=== PATIENT | female | born 1960 ===

== ENCOUNTER 2018-04-13 11:07 | Emergency (ER) | payer MEDICAID, SELFPAY ==
[2018-04-13 11:39] VITALS: BP 140/68; PULSE 71; RESP 18; TEMP 36.6; O2SAT 96
[2018-04-13 11:44] LABS: Bilirubin Negative (Negative); Blood Trace-intact (Negative); Clarity Clear; Glucose Negative (Negative); Ketones Negative (Negative); Leukocyte Esterase Negative (Negative); Nitrite Negative (Negative); Urobilinogen 0.2 EU/dL (Up TO 0.2); pH 5.5 (5-8)
[2018-04-13 11:56] LABS: Bacteria Few HPF (Negative); C & S Indicated? No/Sq. Contamination; Casts Negative LPF (Negative); Crystals Negative HPF (Negative); Epithelial Cells Moderate HPF (Negative); Mucus Negative (Negative); RBC 0-2 (0-2); WBC 0-2 HPF (0-5)
[2018-04-13 12:21] LABS: Abs Immature Grans 0.02 k/cumm (0.0-0.09); Absolute Eosinophil Count 0.16 k/cumm (0.0-0.7); Absolute Lymphocyte Count 2.26 k/cumm (1.2-3.4); Absolute Neutrophil Count 8.79 k/cumm (1.2-6.7); Basophils % 0.2; Eosinophils % 1.3; HCT 43.6 % (36.0-46.0); HGB 15.5 g/dL (12.0-15.5); Immature Grans % 0.2; Lymphocytes % 18.5; Mean Corp. HGB Concentration 35.6 g/dL (32.0-36.0); Mean Corpuscular Hemoglobin 29.6 pg (27.0-33.0); Mean Corpuscular Volume 83.2 fL (80-95); Mean Platelet Volume 9.6 fL (8.0-11.0); Monocytes % 7.9; Neutrophils % 71.9; Platelet Count 255 x1000/uL (130-400); RBC 5.24 m/cumm (4.00-5.20); RBC Distribution Width 12.7 % (11.7-14.6); White Blood Cell Count 12.22 k/cumm (4.4-10.8)
[2018-04-13 12:31] LABS: Absolute Basophil Count 0.02 k/cumm (0.0-0.2); Absolute Monocyte Count 0.97 k/cumm (0.11-0.7)
[2018-04-13 12:37] LABS: ALT 38 U/L (12-78); AST 34 U/L (15-37); Alkaline Phosphatase 85 U/L (46-116); Anion Gap 11.5 mmol/L (3-11); BUN 35 mg/dL (7-18); Bilirubin, Total 0.5 mg/dL (0.2-1.0); CO2 29.5 mmol/L (21.0-32.0); CREATININE 1.34 mg/dL (0.55-1.02); Calcium 9.2 mg/dL (8.5-10.1); Chloride 92 mmol/L (98-107); Estimated GFR 40.48 (mL/min/1.73m2); Glucose 98 mg/dL (70-100); Lipase 92 U/L (73-393); Sodium 133 mmol/L (136-145)
[2018-04-13 12:42] LABS: Potassium 2.8 mmol/L (3.5-5.1)
[2018-04-13] MEDS: Potassium Chloride 20 MEQ TABCR 40 MEQ PO (13:08)
[2018-04-13] MEDS: Normal Saline 500 ML 1000 ML IV (13:15)
[2018-04-13] MEDS: POTASSIUM CHLORIDE 10 MEQ/100 ML BAG 100 MEQ IVPB (13:15)
--- NOTE | 2018-04-20 10:02 | ED.GENADUL_ITS ---
Discharge Plan Disposition Patient Disposition: HOME Condition: Improving Discharge Details Chief Complaint: Abd Prob Clinical Impression: Acute hypokalemia, Nausea vomiting and diarrhea Primary Care Provider: Kira Johnson ED Provider: Delroy Shin Home Meds and New Rx's Prescriptions: Continue amlodipine 5 MG tablet 5 mg PO DAILY RF: 0 chlorthalidone 50 MG tablet 50 mg PO DAILY RF: 0 pantoprazole 20 MG tablet,delayed release (DR/EC) 20 mg PO DAILY RF: 0 escitalopram oxalate [Lexapro] 10 MG tablet 20 mg PO DAILY RF: 0 dexmethylphenidate [Focalin XR] 10 MG capsule,ER biphasic 50-50 10 mg PO DAILY RF: 0 fluticasone-salmeterol [Advair HFA] 8 GM HFA aerosol inhaler 8 gm Inhalation DAILY RF: 0 buprenorphine-naloxone [Suboxone] 1 EACH film 1 ea Sublingual DAILY RF: 0 Loratadine 10 MG TAB.RAPDIS 10 mg PO DAILY RF: 0 levothyroxine 25 MCG tablet 25 mcg PO DAILY RF: 0 potassium chloride 20 MEQ tablet,ER particles/crystals 20 meq PO BID RF: 0 lisinopril 20 MG tablet 20 mg PO DAILY RF: 0 Discharge Instructions Instructions: Hypokalemia (ED), Acute Nausea and Vomiting (ED) Additional Instructions: Take your oral potassium as prescribed and follow-up with your primary care provider if you are continuing to not improved. Feel free to return to the emergency department for any new or worsening symptoms Referrals: Kira Johnson MD [Primary Care Provider] - (As needed for reassessment) Discharge Data Discharge Date/Time-TO BE ENTERED AT DEPARTURE: 04/13/18 15:29 Medical Decision Making Patient presenting to the emergency department for 2 days of nausea and vomiting that she states is persistent with multiple episodes of vomiting and inability to keep down any fluids or food. Patient states some generalized weakness and overall not feeling well but denies any significant abdominal pain , diarrhea, fever or chills. Patient does state that other family member had similar illness that lasted approximately 24 hours about a week ago otherwise has no other known sick contacts and no recent travel. Patient also denies any ingestion of possible spoiled or contaminated food. Patient does state history of low potassium and that she has not been able to tolerate any of her medications. Physical exam is unremarkable and patient has benign nonsurgical abdominal exam but given patient's complaint of weakness and profuse vomiting without ability to take her medications I do feel that labs and IV hydration is needed. Patient denies any current nausea or vomiting states mostly concerned for possible dehydration Review of labs shows significant hypokalemia, leukocytosis, otherwise nondiagnostic labs. Patient was ordered an additional 1 L of fluids and IV potassium. After completion of potassium patient patient reassessed and states significant improvement. Patient was given p.o. potassium and some water and crackers for p.o. challenge. Patient had no adverse effects and was able to tolerate p.o. intake prior to discharge. Patient will encouraged to stay well- hydrated and continue to take her oral potassium along with other prescribed medications. Return to the emergency department for any new or worsening symptoms otherwise to follow-up with her primary care provider for reassessment as needed. Lab Data Lab results reviewed: Yes I reviewed the patient's lab results. HPI General Mode of arrival: ambulatory . Date/Time Provider Initiated Documentation: 04/13/18 11:28 . Limitations to Documentation: no limitations . Information obtained by: patient and RN notes reviewed . History of Present Illness 58 year old F presents to the emergency department with the chief complaint of Nausea vomiting, with intensity rated at 1. Quality is described as aching, and is localized to the abdomen. Patient reports no radiation. Patient started experiencing this day(s) (1) and it has been constant. No relieving factors improve symptom(s), No exacerbating factors reported . Patient notes no other symptoms.. Patient did receive the following treatments prior to arrival, none Related Data Home Medications Medication Instructions Recorded Confirmed levothyroxine 25 mcg PO DAILY 10/14/16 11/16/17 potassium chloride 20 meq PO BID 10/14/16 11/16/17 lisinopril 20 mg PO DAILY 11/16/17 11/16/17 Loratadine 10 mg PO DAILY tab-cap 01/16/18 amlodipine 5 mg PO DAILY tab-cap 01/16/18 buprenorphine-naloxone [Suboxone] 1 ea SUBLINGUAL DAILY film 01/16/18 chlorthalidone 50 mg PO DAILY tab-cap 01/16/18 dexmethylphenidate [Focalin XR] 10 mg PO DAILY tab-cap 01/16/18 escitalopram oxalate [Lexapro] 20 mg PO DAILY tab-cap 01/16/18 fluticasone-salmeterol [Advair HFA] 8 gm INHALATION DAILY inhaler 01/16/18 pantoprazole 20 mg PO DAILY tab-cap 01/16/18 Allergies Allergy/AdvReac Type Severity Reaction Status Date / Time No Known Allergies Allergy Unverified 11/16/17 10:00 General Stated Complaint: Abd Prob KAY: 3 Review of Systems Constitutional Denies chills, Reports fatigue, Denies fever(s) and Reports poor appetite Cardiovascular Denies chest pain and Denies dyspnea Respiratory Denies dyspnea Gastrointestinal Reports as per HPI, Reports abdominal pain, Denies melena, Denies change in bowel habits, Denies constipation, Denies diarrhea, Reports nausea and Reports vomiting Genitourinary Denies hematuria, Denies urinary incontinence, Denies urinary hesitancy and Denies urinary urgency Integumentary/Breasts Denies rash Endocrine Reports fatigue PFSH Medical History Depression (Chronic) GERD (gastroesophageal reflux disease) (Chronic) Hypertension (Chronic) Hypokalemia due to inadequate potassium intake (Chronic) Social History Smoking/Tobacco Use Status: Never Surgical History History of hysterectomy (Chronic) Exam Const General: cooperative Orientation: alert, awake and oriented x3 Resp Effort & Inspection: normal respiratory effort and able to speak in complete sentences Auscultation: clear to auscultation bilaterally Cardio Rate: regular rate Rhythm: regular rhythm Heart Sounds: S1 normal and S2 normal GI Palpation: soft, no hepatosplenomegaly, not firm, no guarding, no masses, no pulsatile masses, not rigid, no splenomegaly and nontender Auscultation: normal bowel sounds Back/Spine/Pelvis Back: no CVA tenderness Neuro General: alert, awake, oriented x3, gait normal and moves all extremities Course Vital Signs Temperature 36.6 C 04/13/18 11:39 Pulse 71 04/13/18 11:39 Respiratory Rate 18 04/13/18 11:39 Blood Pressure 140/68 04/13/18 11:39 Pulse Oximetry 96 04/13/18 11:39 Temperature 36.6 C 04/13/18 11:39 Temperature Source Temporal Artery Scan 04/13/18 11:39 Pulse 71 04/13/18 11:39 Respiratory Rate 18 04/13/18 11:39 Respiratory Effort 04/13/18 11:42 Blood Pressure 140/68 04/13/18 11:39 Blood Pressure Position Sitting 04/13/18 11:39 Pulse Oximetry 96 04/13/18 11:39 Oxygen Delivery Method Room Air 04/13/18 11:39 Oxygen Flow Rate 0 04/13/18 11:39 Pain Level 0 04/13/18 11:39 Lab/Test Results Lab/Test Results: Laboratory Tests Range/Units 04/13/18 04/13/18 04/13/18 11:30 12:11 12:11 WBC (4.4-10.8) k/cumm 12.22 H RBC (4.00-5.20) m/cumm 5.24 H Hgb (12.0-15.5) g/dL 15.5 Hct (36.0-46.0) % 43.6 MCV (80-95) fL 83.2 MCH (27.0-33.0) pg 29.6 MCHC (32.0-36.0) g/dL 35.6 RDW (11.7-14.6) % 12.7 Plt Count (130-400) x1000/uL 255 MPV (8.0-11.0) fL 9.6 Immature Gran % 0.2 Neutrophils % 71.9 Lymphocytes % 18.5 Monocytes % 7.9 Eosinophils % 1.3 Basophils % 0.2 Absolute Neutrophils (1.2-6.7) k/cumm 8.79 H Absolute Lymphocytes (1.2-3.4) k/cumm 2.26 Absolute Monocytes (0.11-0.7) k/cumm 0.97 H Absolute Eosinophils (0.0-0.7) k/cumm 0.16 Absolute Basophils (0.0-0.2) k/cumm 0.02 Sodium (136-145) mmol/L 133 L Potassium (3.5-5.1) mmol/L 2.8 L* Chloride (98-107) mmol/L 92 L Carbon Dioxide (21.0-32.0) mmol/L 29.5 Anion Gap (3-11) mmol/L 11.5 H BUN (7-18) mg/dL 35 H Creatinine (0.55-1.02) mg/dL 1.34 H Estimated GFR/1.73 m2 (mL/min/1.73m2) 40.48 Glucose (70-100) mg/dL 98 Calcium (8.5-10.1) mg/dL 9.2 Total Bilirubin (0.2-1.0) mg/dL 0.5 AST (15-37) U/L 34 ALT (12-78) U/L 38 Alkaline Phosphatase (46-116) U/L 85 Total Protein (6.4-8.2) g/dL 8.0 Albumin (3.4-5.0) g/dL 4.0 Lipase (73-393) U/L 92 Urine Color (Yellow) Yellow Urine Clarity Clear Urine pH (5-8) 5.5 Ur Specific [place] (1.005-1.025) 1.010 Urine Protein (Negative) mg/dL Negative Urine Ketones (Negative) mg/dL Negative Urine Blood (Negative) Trace-intact H Urine Nitrite (Negative) Negative Urine Bilirubin (Negative) Negative Urine Urobilinogen (Up TO 0.2) EU/dL 0.2 Ur Leukocyte Esterase (Negative) Negative Urine RBC (0-2) 0-2 Urine WBC (0-5) HPF 0-2 Ur Epithelial Cells (Negative) HPF Moderate Urine Crystals (Negative) HPF Negative Urine Bacteria (Negative) HPF Few Urine Casts (Negative) LPF Negative Urine Mucus (Negative) Negative Ur Culture Indicated? No/sq. contamination Urine Glucose (Negative) mg/dL Negative
== END 2018-04-13 15:29 | disposition home or self-care (01) ==
PROVIDERS: Emergency Provider Nurse Practitioner Family; PCP Family Medicine
DX: E87.6 Hypokalemia (principal); R11.2 Nausea with vomiting, unspecified; R19.7 Diarrhea, unspecified; I10 Essential (primary) hypertension
CPT/HCPCS: 36415; 80053; 83690; 96361; 96365; 99284; 81003; 81015; 85025; J3480

== ENCOUNTER 2018-07-16 15:32 | Outpatient (CLI) | payer MEDICAID, SELFPAY ==
[2018-07-16 16:56] LABS: Absolute Basophil Count 0.06 k/cumm (0.0-0.2); Absolute Eosinophil Count 0.51 k/cumm (0.0-0.7); Absolute Lymphocyte Count 2.49 k/cumm (1.2-3.4); Absolute Monocyte Count 0.29 k/cumm (0.11-0.7); Absolute Neutrophil Count 3.72 k/cumm (1.2-6.7); Basophils % 0.8; Eosinophils % 7.2; HCT 43.3 % (36.0-46.0); HGB 15.2 g/dL (12.0-15.5); Lymphocytes % 35.2; Mean Corp. HGB Concentration 35.1 g/dL (32.0-36.0); Mean Corpuscular Volume 85.4 fL (80-95); Mean Platelet Volume 10.2 fL (8.0-11.0); Monocytes % 4.1; Neutrophils % 52.7; Platelet Count 229 x1000/uL (130-400); RBC 5.07 m/cumm (4.00-5.20); RBC Distribution Width 12.6 % (11.7-14.6); White Blood Cell Count 7.07 k/cumm (4.4-10.8)
[2018-07-16 17:40] LABS: ALT 37 U/L (12-78); Anion Gap 8.4 mmol/L (3-11); BUN 15 mg/dL (7-18); CO2 30.6 mmol/L (21.0-32.0); CREATININE 0.83 mg/dL (0.55-1.02); Calcium 9.4 mg/dL (8.5-10.1); Chloride 103 mmol/L (98-107); Glucose 87 mg/dL (70-100); Potassium 4.2 mmol/L (3.5-5.1); Sodium 142 mmol/L (136-145)
[2018-07-16 22:33] LABS: Hemoglobin A1C 5.8 % (4.5-6.2)
== END 2018-07-16 15:52 ==
PROVIDERS: PCP Family Medicine; Visit Provider Family Medicine
DX: E78.5 Hyperlipidemia, unspecified (principal); R73.01 Impaired fasting glucose; E87.6 Hypokalemia; D72.829 Elevated white blood cell count, unspecified
CPT/HCPCS: 36415; 80048; 83036; 84460; 85025

== ENCOUNTER 2018-12-19 10:04 | Outpatient (REF) | payer MEDICAID, SELFPAY ==
[2018-12-19 13:17] LABS: ALT 36 U/L (12-78); AST 20 U/L (15-37); Albumin 4.3 g/dL (3.4-5.0); Alkaline Phosphatase 88 U/L (46-116); Bilirubin, Total 0.3 mg/dL (0.2-1.0); CREATININE 0.74 mg/dL (0.55-1.02); Calcium 9.4 mg/dL (8.5-10.1); Calculated LDL 109; Chloride 102 mmol/L (98-107); Cholesterol 169 mg/dL (50-200); Glucose 104 mg/dL (70-100); HDL Cholesterol 42 mg/dL (40-60); Potassium 4.6 mmol/L (3.5-5.1); Sodium 141 mmol/L (136-145); TSH (W/Ref FT4) 1.06 uIU/mL (0.358-3.74); Total Protein 7.8 g/dL (6.4-8.2); Triglyceride 92 mg/dL (30-150)
[2018-12-19 13:31] LABS: BUN 14 mg/dL (7-18)
[2018-12-19 14:42] LABS: Hemoglobin A1C 5.8 % (4.5-6.2)
== END 2018-12-19 10:24 ==
LOC: NCHCN 10:04
PROVIDERS: PCP Family Medicine; Visit Provider Family Medicine
DX: I10 Essential (primary) hypertension (principal); E03.9 Hypothyroidism, unspecified; R73.01 Impaired fasting glucose; E78.5 Hyperlipidemia, unspecified
CPT/HCPCS: 80053; 80061; 83721; 83036; 84443

== ENCOUNTER 2018-12-25 21:37 | Emergency (ER) | payer MEDICAID, SELFPAY ==
[2018-12-25] VITALS (15 sets, daily range): BP systolic 59–93; BP diastolic 29–45; PULSE 69–88; RESP 11–36; TEMP 36.2; O2SAT 82–96
--- NOTE | 2018-12-25 21:48 | ED.GENADUL_ITS ---
Discharge Plan Disposition Patient Disposition: AGAINST MEDICAL ADVICE Condition: Serious Discharge Details Chief Complaint: Dizzy/Sync Clinical Impression: Acute hypotension, Syncope, Acute hypokalemia Primary Care Provider: Kira Johnson ED Provider: Mayra Ames Home Meds and New Rx's Prescriptions: Continued amlodipine 5 MG tablet 5 mg PO DAILY RF: 0 pantoprazole 20 MG tablet,delayed release (DR/EC) 40 mg PO DAILY RF: 0 escitalopram oxalate [Lexapro] 10 MG tablet 20 mg PO DAILY RF: 0 dexmethylphenidate [Focalin XR] 10 MG capsule,ER biphasic 50-50 30 mg PO DAILY RF: 0 Advair HFA 8 GM HFA aerosol inhaler 8 gm Inhalation DAILY RF: 0 buprenorphine-naloxone [Suboxone] 1 EACH film 1 ea Sublingual DAILY RF: 0 levothyroxine 25 MCG tablet 50 mcg PO DAILY RF: 0 potassium chloride 20 MEQ tablet,ER particles/crystals 20 meq PO BID RF: 0 lisinopril 20 MG tablet 40 mg PO DAILY RF: 0 Discontinued rosuvastatin 20 mg Tablet 20 mg PO DAILY RF: 0 Discharge Instructions Instructions: Hypokalemia (ED), Syncope (ED), Hypotension (ED) Additional Instructions: You are acutely ill and leaving AGAINST MEDICAL ADVICE. The medical issues found here place you at a high risk for serious medical risk including . You may return at any point for further medical care. Please call 911 with any recurrent symptoms. Please contact your primary care tomorrow morning for follow up as soon as possible Referrals: Kira Johnson MD [Primary Care Provider] - Discharge Data Discharge Date/Time-TO BE ENTERED AT DEPARTURE: 12/26/18 00:09 <Amadou Lagos MD - Last Filed: 12/25/18 21:49> ECG Data Attestation: I personally reviewed and interpreted this ECG (s) as follows: Prior ECG tracings: not available for review Interpretation: sinus rhythm, rate of 75, pr 180, no acute st t wave ischemic changes HPI <ANUSHA Garcia - Last Filed: 12/26/18 23:29> General Date/Time Provider Initiated Documentation: 12/25/18 21:44 . Related Data Home Medications Medication Instructions Recorded Confirmed levothyroxine 50 mcg PO DAILY 10/14/16 12/25/18 potassium chloride 20 meq PO BID 10/14/16 12/25/18 lisinopril 40 mg PO DAILY 11/16/17 12/25/18 Advair HFA 8 gm INHALATION DAILY inhaler 01/16/18 12/25/18 amlodipine 5 mg PO DAILY tab-cap 01/16/18 12/25/18 buprenorphine-naloxone [Suboxone] 1 ea SUBLINGUAL DAILY film 01/16/18 12/25/18 dexmethylphenidate [Focalin XR] 30 mg PO DAILY tab-cap 01/16/18 12/25/18 escitalopram oxalate [Lexapro] 20 mg PO DAILY tab-cap 01/16/18 12/25/18 pantoprazole 40 mg PO DAILY tab-cap 01/16/18 12/25/18 Allergies Allergy/AdvReac Type Severity Reaction Status Date / Time No Known Allergies Allergy Unverified 05/16/18 14:28 General Stated Complaint: Dizzy/Sync KAY: 2 PFSH <ANUSHA Garcia - Last Filed: 12/26/18 23:29> Medical History Hepatitis C antibody test positive (Acute) Hx of opioid abuse (Acute) Depression (Chronic) GERD (gastroesophageal reflux disease) (Chronic) Hypertension (Chronic) Hypokalemia due to inadequate potassium intake (Resolved) Surgical History History of hysterectomy (Resolved) Social History Smoking/Tobacco Use Status: Current every day Tobacco Type: cigarettes Alcohol Intake: never Drug use: Current Sobriety Substance use type: does not use Details: 7 years on daily suboxone Number of Children: 4 current occupation: works at [employer]. [place] daily Seatbelt use: always Do you feel safe at home: Yes Do you feel safe in your relationship?: Yes History History 4 Para Hx # Term Pregnancies 4 Multiple births Hx # Pregnancies Ectopic pregnancies AB induced Hx Number of Living Children AB spontaneous Course <ANUSHA Garcia - Last Filed: 12/26/18 23:29> Vital Signs Temperature 36.2 C L 12/25/18 21:43 Pulse 78 12/25/18 21:43 Respiratory Rate 18 12/25/18 21:43 Blood Pressure 70/35 L 12/25/18 21:43 Pulse Oximetry 91 L 12/25/18 21:43 Temperature 36.2 C L 12/25/18 21:43 Temperature Source Tympanic 12/25/18 21:43 Pulse 78 12/25/18 21:43 Respiratory Rate 18 12/25/18 21:43 Blood Pressure 70/35 L 12/25/18 21:43 Blood Pressure Position Supine 12/25/18 21:43 Pulse Oximetry 91 L 12/25/18 21:43 Oxygen Delivery Method Room Air 12/25/18 21:43 Oxygen Flow Rate 0 12/25/18 21:43
[2018-12-25] MEDS: Normal Saline 1,000 ML 1000 ML IV ×2 (21:51→23:41)
--- NOTE | 2018-12-25 21:58 | W.ED.GENAD ---
Discharge Plan Disposition Patient Disposition: AGAINST MEDICAL ADVICE Condition: Serious Discharge Details Chief Complaint: Dizzy/Sync Clinical Impression: Acute hypotension, Syncope, Acute hypokalemia Primary Care Provider: Kira Johnson ED Provider: Mayra Ames Home Meds and New Rx's Prescriptions: Continued amlodipine 5 MG tablet 5 mg PO DAILY RF: 0 pantoprazole 20 MG tablet,delayed release (DR/EC) 40 mg PO DAILY RF: 0 escitalopram oxalate [Lexapro] 10 MG tablet 20 mg PO DAILY RF: 0 dexmethylphenidate [Focalin XR] 10 MG capsule,ER biphasic 50-50 30 mg PO DAILY RF: 0 Advair HFA 8 GM HFA aerosol inhaler 8 gm Inhalation DAILY RF: 0 buprenorphine-naloxone [Suboxone] 1 EACH film 1 ea Sublingual DAILY RF: 0 levothyroxine 25 MCG tablet 50 mcg PO DAILY RF: 0 potassium chloride 20 MEQ tablet,ER particles/crystals 20 meq PO BID RF: 0 lisinopril 20 MG tablet 40 mg PO DAILY RF: 0 Discontinued rosuvastatin 20 mg Tablet 20 mg PO DAILY RF: 0 Discharge Instructions Instructions: Hypokalemia (ED), Syncope (ED), Hypotension (ED) Additional Instructions: You are acutely ill and leaving AGAINST MEDICAL ADVICE. The medical issues found here place you at a high risk for serious medical risk including . You may return at any point for further medical care. Please call 911 with any recurrent symptoms. Please contact your primary care tomorrow morning for follow up as soon as possible Referrals: Kira Johnson MD [Primary Care Provider] - Medical Decision Making Patient is a 58-year-old female presents today with chief complaint of syncope x2 prior to arrival. States that symptoms that suddenly came on. Patient associates this with need to have bowel movement. On exam, patient appears quite well. She is noted to be hypotensive with blood pressure of 70/45. She is mentating well, alert and oriented. She has petechia on bilateral feet. Unable to palpate pulses in the feet. No abdominal tenderness on exam. Exam otherwise benign. Patient does have a murmur but reports this is chronic. Patient is currently asymptomatic. EKG was reviewed by Dr. Lagos. Patient is in normal sinus rhythm with a rate of 75. No ischemic changes noted. Concern for possible dissection. Plan to send her for a CAT scan immediately. Patient is having a bowel movement, patient unable to wait until after imaging and evaluation. CT of chest/abdomen/pelvis reviewed by myself, Dr. Lagos. Reviewed by radiologist, no acute pathology noted. Of note, no dissection, PE, aneurysm, pericardial effusion, heart strain Potassium 2.5, patient has hx of hypokalemia. will begin to replenish this. Discussed case with Dr. Lagos who advised this may be secondary to adrenal crisis, advised ordering IV hydrocortisone, 100mg given. No beds are available in our institution Consulted with Dr. Arora at [facility] who advised starting patient on norepinephrine as her BP remains low with systolic in 70s despite aggressive IV hydration. He agrees to admission. Images pushed to them. Shortly after admission was accepted, patient is now wanting to leave. Patient does have capacity but we discussed the risks at length. Will attempt to road test the patient and she feels that she can walk out. Her systolic is now improved at 107. This is after hydrocortisone, 3 L of fluid, oral potassium and is currently receiving her IV potassium. I advised her, in detail, that her feeling well may be associated with the medication she is currently receiving and that there is risk of morbidity and mortality should she decide to leave AGAINST MEDICAL ADVICE tonight. Patient voiced understanding, has appropriate capacity to make this decision. She is accompanied by her significant other is also trying to get her to stay for further medical care. Patient able to ambulate to the bathroom. Again, patient does have mental capacity and is refusing further medical care, is wanting to leave AGAINST MEDICAL ADVICE. She has been explained possible outcomes with this decision. She has armored truck driver here taking her home. HPI General Mode of arrival: EMS. Date/Time Provider Initiated Documentation: 12/25/18 21:44. Limitations to Documentation: no limitations. Information obtained by: patient, family, EMS and RN notes reviewed. HPI Narrative: Patient is a 58-year-old female presents today with chief complaint of syncope. She reports that she been feeling quite well this afternoon. Reports that she had sudden urge to use the bathroom, stood up from a seated position and had a syncopal episode. Her then called 911. Firefighters were able to help her get back to more seated position and patient again syncopized. When EMS arrived, patient was laying on the couch. Was noted to be hypotensive with systolic in the 70. Patient reports that she is feeling quite well this time. However, she does more upright position, she again becomes lightheaded. She denies any chest pain, abdominal pain, shortness of breath. Continues to endorse need to have a bowel movement. Reports that she did have a hard bowel movement yesterday and is concerned for constipation. Hx of hep C, GERD, HTN, hypokalemia, depression. Patient took Rosuvastatin for the first time this evening, medications otherwise unchagned. Related Data Home Medications Medication Instructions Recorded Confirmed levothyroxine 50 mcg PO DAILY 10/14/16 12/25/18 potassium chloride 20 meq PO BID 10/14/16 12/25/18 lisinopril 40 mg PO DAILY 11/16/17 12/25/18 Advair HFA 8 gm INHALATION DAILY inhaler 01/16/18 12/25/18 amlodipine 5 mg PO DAILY tab-cap 01/16/18 12/25/18 buprenorphine-naloxone [Suboxone] 1 ea SUBLINGUAL DAILY film 01/16/18 12/25/18 dexmethylphenidate [Focalin XR] 30 mg PO DAILY tab-cap 01/16/18 12/25/18 escitalopram oxalate [Lexapro] 20 mg PO DAILY tab-cap 01/16/18 12/25/18 pantoprazole 40 mg PO DAILY tab-cap 01/16/18 12/25/18 Allergies Allergy/AdvReac Type Severity Reaction Status Date / Time No Known Allergies Allergy Unverified 05/16/18 14:28 General Stated Complaint: Dizzy/Sync KAY: 2 Review of Systems Constitutional Reports as per HPI, Denies chills, Denies fever(s), Denies headache(s), Denies lethargy and Denies poor appetite Eyes Denies change in vision ENT Denies dizziness and Denies headache(s) Cardiovascular Reports as per HPI, Reports syncope (x2), Denies dyspnea and Denies dyspnea on exertion Respiratory Reports as per HPI, Denies chest congestion, Denies cough, Denies pain on inspiration, Denies pain with cough, Denies dyspnea, Denies dyspnea on exertion and Denies wheezing Gastrointestinal Reports as per HPI, Denies abdominal pain, Denies diarrhea, Denies nausea and Denies vomiting Musculoskeletal Reports as per HPI and Denies back pain Integumentary/Breasts Reports as per HPI and Denies rash Neurologic Reports as per HPI, Denies dizziness, Reports syncope (x2) and Denies headache(s) Allergic/Immunologic Denies wheezing [facility] Medical History Hepatitis C antibody test positive (Acute) Hx of opioid abuse (Acute) Depression (Chronic) GERD (gastroesophageal reflux disease) (Chronic) Hypertension (Chronic) Hypokalemia due to inadequate potassium intake (Resolved) Surgical History History of hysterectomy (Resolved) Social History Smoking/Tobacco Use Status: Current every day Tobacco Type: cigarettes Alcohol Intake: never Drug use: Current Sobriety Substance use type: does not use Details: 7 years on daily suboxone Number of Children: 4 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 Seatbelt use: always Do you feel safe at home: Yes Do you feel safe in your relationship?: Yes History History 4 Para Hx # Term Pregnancies 4 Multiple births Hx # Pregnancies Ectopic pregnancies AB induced Hx Number of Living Children AB spontaneous Exam Const General: cooperative, healthy appearing, comfortable, no acute distress and well developed Nutritional Appearance: average body habitus and well nourished Orientation: alert, awake and oriented x3 HENMT Head: normal to inspection Ears: hearing grossly normal bilaterally Mouth: moist mucous membranes Chest Chest: normal inspection of the chest, normal palpation of entire chest wall and no crepitus Resp Effort & Inspection: normal respiratory effort, able to speak in complete sentences and no respiratory distress Auscultation: clear to auscultation bilaterally, no rales, no rhonchi and no wheezes Cardio Rate: regular rate Rhythm: regular rhythm Heart Sounds: murmur systolic GI Inspection: normal to inspection, no edema and non-distended Palpation: soft, no hepatosplenomegaly, no aortic enlargement, not firm, no guarding, not rigid and nontender Auscultation: hypoactive bowel sounds Back/Spine/Pelvis Back: no CVA tenderness Thoracic/Lumbar Spine: thoracic and lumbar spine normal to inspection Skin General skin exam: no rashes or lesions noted Trauma: no lacerations or abrasions Neuro General: alert, awake and oriented x3 Cognition: normal cognition Speech: speech normal Gait: normal gait Extrem General: abnormal to inspection (patient has petechiae to the dorsal aspect of bilateral feet. Unable to pa), no pedal edema and no calf tenderness Psych Appearance: grossly normal and well kempt Mental Status: mental status grossly normal Speech and Movement: speech and movement normal Course Vital Signs Temperature 36.2 C L 12/25/18 21:43 Pulse 78 12/25/18 21:43 Respiratory Rate 18 12/25/18 21:43 Blood Pressure 70/35 L 12/25/18 21:43 Pulse Oximetry 91 L 12/25/18 21:43 Temperature 36.2 C L 12/25/18 21:43 Temperature Source Tympanic 12/25/18 21:43 Pulse 78 12/25/18 21:43 Respiratory Rate 18 12/25/18 21:53 Respiratory Effort 12/25/18 21:53 Respiratory Depth Normal 12/25/18 21:53 Respiratory Pattern Normal 12/25/18 21:53 Blood Pressure 70/35 L 12/25/18 21:43 Blood Pressure Position Supine 12/25/18 21:43 Pulse Oximetry 91 L 12/25/18 21:43 Oxygen Delivery Method Room Air 12/25/18 21:43 Oxygen Flow Rate 0 12/25/18 21:43
--- NOTE | 2018-12-25 22:01 | ED.GENADUL_ITS ---
Discharge Plan Disposition Patient Disposition: AGAINST MEDICAL ADVICE Condition: Serious Discharge Details Chief Complaint: Dizzy/Sync Clinical Impression: Acute hypotension, Syncope, Acute hypokalemia Primary Care Provider: Kira Johnson ED Provider: Mayra Ames Home Meds and New Rx's Prescriptions: Continued amlodipine 5 MG tablet 5 mg PO DAILY RF: 0 pantoprazole 20 MG tablet,delayed release (DR/EC) 40 mg PO DAILY RF: 0 escitalopram oxalate [Lexapro] 10 MG tablet 20 mg PO DAILY RF: 0 dexmethylphenidate [Focalin XR] 10 MG capsule,ER biphasic 50-50 30 mg PO DAILY RF: 0 Advair HFA 8 GM HFA aerosol inhaler 8 gm Inhalation DAILY RF: 0 buprenorphine-naloxone [Suboxone] 1 EACH film 1 ea Sublingual DAILY RF: 0 levothyroxine 25 MCG tablet 50 mcg PO DAILY RF: 0 potassium chloride 20 MEQ tablet,ER particles/crystals 20 meq PO BID RF: 0 lisinopril 20 MG tablet 40 mg PO DAILY RF: 0 Discontinued rosuvastatin 20 mg Tablet 20 mg PO DAILY RF: 0 Discharge Instructions Instructions: Hypokalemia (ED), Syncope (ED), Hypotension (ED) Additional Instructions: You are acutely ill and leaving AGAINST MEDICAL ADVICE. The medical issues found here place you at a high risk for serious medical risk including . You may return at any point for further medical care. Please call 911 with any recurrent symptoms. Please contact your primary care tomorrow morning for follow up as soon as possible Referrals: Kira Johnson MD [Primary Care Provider] - Medical Decision Making Patient is a 58-year-old female presents today with chief complaint of syncope x2 prior to arrival. States that symptoms that suddenly came on. Patient associates this with need to have bowel movement. On exam, patient appears quite well. She is noted to be hypotensive with blood pressure of 70/45. She is mentating well, alert and oriented. She has petechia on bilateral feet. Unable to palpate pulses in the feet. No abdominal tenderness on exam. Exam otherwise benign. Patient does have a murmur but reports this is chronic. Patient is currently asymptomatic. EKG was reviewed by Dr. Lagos. Patient is in normal sinus rhythm with a rate of 75. No ischemic changes noted. Concern for possible dissection. Plan to send her for a CAT scan immediately. Patient is having a bowel movement, patient unable to wait until after imaging and evaluation. CT of chest/abdomen/pelvis reviewed by myself, Dr. Lagos. Reviewed by radiologist, no acute pathology noted. Of note, no dissection, PE, aneurysm, pericardial effusion, heart strain Potassium 2.5, patient has hx of hypokalemia. will begin to replenish this. Discussed case with Dr. Lagos who advised this may be secondary to adrenal crisis, advised ordering IV hydrocortisone, 100mg given. No beds are available in our institution Consulted with Dr. Arora at [facility] who advised starting patient on norepinephrine as her BP remains low with systolic in 70s despite aggressive IV hydration. He agrees to admission. Images pushed to them. Shortly after admission was accepted, patient is now wanting to leave. Patient does have capacity but we discussed the risks at length. Will attempt to road test the patient and she feels that she can walk out. Her systolic is now improved at 107. This is after hydrocortisone, 3 L of fluid, oral potassium and is currently receiving her IV potassium. I advised her, in detail, that her feeling well may be associated with the medication she is currently receiving and that there is risk of morbidity and mortality should she decide to leave AGAINST MEDICAL ADVICE tonight. Patient voiced understanding, has appropriate capacity to make this decision. She is accompanied by her significant other is also trying to get her to stay for further medical care. Patient able to ambulate to the bathroom. Again, patient does have mental capacity and is refusing further medical care, is wanting to leave AGAINST MEDICAL ADVICE. She has been explained possible outcomes with this decision. She has residential recycle driver here taking her home. HPI General Mode of arrival: EMS . Date/Time Provider Initiated Documentation: 12/25/18 21:44 . Limitations to Documentation: no limitations . Information obtained by: patient, family, EMS and RN notes reviewed . HPI Narrative: Patient is a 58-year-old female presents today with chief complaint of syncope. She reports that she been feeling quite well this afternoon. Reports that she had sudden urge to use the bathroom, stood up from a seated position and had a syncopal episode. Her then called 911. Firefighters were able to help her get back to more seated position and patient again syncopized. When EMS arrived, patient was laying on the couch. Was noted to be hypotensive with systolic in the 70. Patient reports that she is feeling quite well this time. However, she does more upright position, she again becomes lightheaded. She denies any chest pain, abdominal pain, shortness of breath. Continues to endorse need to have a bowel movement. Reports that she did have a hard bowel movement yesterday and is concerned for constipation. Hx of hep C, GERD, HTN, hypokalemia, depression. Patient took Rosuvastatin for the first time this evening, medications otherwise unchagned. Related Data Home Medications Medication Instructions Recorded Confirmed levothyroxine 50 mcg PO DAILY 10/14/16 12/25/18 potassium chloride 20 meq PO BID 10/14/16 12/25/18 lisinopril 40 mg PO DAILY 11/16/17 12/25/18 Advair HFA 8 gm INHALATION DAILY inhaler 01/16/18 12/25/18 amlodipine 5 mg PO DAILY tab-cap 01/16/18 12/25/18 buprenorphine-naloxone [Suboxone] 1 ea SUBLINGUAL DAILY film 01/16/18 12/25/18 dexmethylphenidate [Focalin XR] 30 mg PO DAILY tab-cap 01/16/18 12/25/18 escitalopram oxalate [Lexapro] 20 mg PO DAILY tab-cap 01/16/18 12/25/18 pantoprazole 40 mg PO DAILY tab-cap 01/16/18 12/25/18 Allergies Allergy/AdvReac Type Severity Reaction Status Date / Time No Known Allergies Allergy Unverified 05/16/18 14:28 General Stated Complaint: Dizzy/Sync KAY: 2 Review of Systems Constitutional Reports as per HPI, Denies chills, Denies fever(s), Denies headache(s), Denies lethargy and Denies poor appetite Eyes Denies change in vision ENT Denies dizziness and Denies headache(s) Cardiovascular Reports as per HPI, Reports syncope (x2), Denies dyspnea and Denies dyspnea on exertion Respiratory Reports as per HPI, Denies chest congestion, Denies cough, Denies pain on inspiration, Denies pain with cough, Denies dyspnea, Denies dyspnea on exertion and Denies wheezing Gastrointestinal Reports as per HPI, Denies abdominal pain, Denies diarrhea, Denies nausea and Denies vomiting Musculoskeletal Reports as per HPI and Denies back pain Integumentary/Breasts Reports as per HPI and Denies rash Neurologic Reports as per HPI, Denies dizziness, Reports syncope (x2) and Denies headache(s) Allergic/Immunologic Denies wheezing [facility] Medical History Hepatitis C antibody test positive (Acute) Hx of opioid abuse (Acute) Depression (Chronic) GERD (gastroesophageal reflux disease) (Chronic) Hypertension (Chronic) Hypokalemia due to inadequate potassium intake (Resolved) Surgical History History of hysterectomy (Resolved) Social History Smoking/Tobacco Use Status: Current every day Tobacco Type: cigarettes Alcohol Intake: never Drug use: Current Sobriety Substance use type: does not use Details: 7 years on daily suboxone Number of Children: 4 current occupation: works at [employer]. Lifts heavy metal daily Seatbelt use: always Do you feel safe at home: Yes Do you feel safe in your relationship?: Yes History History 4 Para Hx # Term Pregnancies 4 Multiple births Hx # Pregnancies Ectopic pregnancies AB induced Hx Number of Living Children AB spontaneous Exam Const General: cooperative, healthy appearing, comfortable, no acute distress and well developed Nutritional Appearance: average body habitus and well nourished Orientation: alert, awake and oriented x3 HENMT Head: normal to inspection Ears: hearing grossly normal bilaterally Mouth: moist mucous membranes Chest Chest: normal inspection of the chest, normal palpation of entire chest wall and no crepitus Resp Effort & Inspection: normal respiratory effort, able to speak in complete sentences and no respiratory distress Auscultation: clear to auscultation bilaterally, no rales, no rhonchi and no wheezes Cardio Rate: regular rate Rhythm: regular rhythm Heart Sounds: murmur systolic GI Inspection: normal to inspection, no edema and non-distended Palpation: soft, no hepatosplenomegaly, no aortic enlargement, not firm, no guarding, not rigid and nontender Auscultation: hypoactive bowel sounds Back/Spine/Pelvis Back: no CVA tenderness Thoracic/Lumbar Spine: thoracic and lumbar spine normal to inspection Skin General skin exam: no rashes or lesions noted Trauma: no lacerations or abrasions Neuro General: alert, awake and oriented x3 Cognition: normal cognition Speech: speech normal Gait: normal gait Extrem General: abnormal to inspection (patient has petechiae to the dorsal aspect of bilateral feet. Unable to pa), no pedal edema and no calf tenderness Psych Appearance: grossly normal and well kempt Mental Status: mental status grossly normal Speech and Movement: speech and movement normal Course Vital Signs Temperature 36.2 C L 12/25/18 21:43 Pulse 78 12/25/18 21:43 Respiratory Rate 18 12/25/18 21:43 Blood Pressure 70/35 L 12/25/18 21:43 Pulse Oximetry 91 L 12/25/18 21:43 Temperature 36.2 C L 12/25/18 21:43 Temperature Source Tympanic 12/25/18 21:43 Pulse 78 12/25/18 21:43 Respiratory Rate 18 12/25/18 21:53 Respiratory Effort 12/25/18 21:53 Respiratory Depth Normal 12/25/18 21:53 Respiratory Pattern Normal 12/25/18 21:53 Blood Pressure 70/35 L 12/25/18 21:43 Blood Pressure Position Supine 12/25/18 21:43 Pulse Oximetry 91 L 12/25/18 21:43 Oxygen Delivery Method Room Air 12/25/18 21:43 Oxygen Flow Rate 0 12/25/18 21:43
[2018-12-25] MEDS: Omnipaque 350 MG/ML 100 ML BTL IJ (22:05)
[2018-12-25 22:16] LABS: Lactate-non-spesis 1.4 mmol/l (0.6-1.4)
[2018-12-25 22:19] LABS: Abs Immature Grans 0.01 k/cumm (0.0-0.09); Absolute Basophil Count 0.04 k/cumm (0.0-0.2); Absolute Eosinophil Count 0.37 k/cumm (0.0-0.7); Absolute Lymphocyte Count 2.45 k/cumm (1.2-3.4); Absolute Monocyte Count 0.62 k/cumm (0.11-0.7); Absolute Neutrophil Count 5.29 k/cumm (1.2-6.7); Basophils % 0.5; Eosinophils % 4.2; HCT 37.2 % (36.0-46.0); HGB 13.1 g/dL (12.0-15.5); Immature Grans % 0.1; Lymphocytes % 27.9; Mean Corp. HGB Concentration 35.2 g/dL (32.0-36.0); Mean Corpuscular Hemoglobin 30.4 pg (27.0-33.0); Mean Corpuscular Volume 86.3 fL (80-95); Monocytes % 7.1; Neutrophils % 60.2; Platelet Count 217 x1000/uL (130-400); RBC 4.31 m/cumm (4.00-5.20); RBC Distribution Width 12.3 % (11.7-14.6); White Blood Cell Count 8.78 k/cumm (4.4-10.8)
--- NOTE | 2018-12-25 22:30 | DI.CT_ITS ---
SYMPTOM/DIAGNOSIS: HYPOTENSION, SYNCOPE CTA CHEST, ABDOMEN AND PELVIS: CT angiography was performed with multi slice acquisition and multi planar and 3D reconstruction. The study was carried out with intravenous injection of 100 cc's of Omnipaque 350. There is no aortic aneurysm or evidence of dissection. No pulmonary emboli are identified. The lungs are unremarkable. There is no evidence of a pneumothorax or pleural effusion. The heart is unremarkable. There is no evidence of lymphadenopathy. No acute bony abnormalities are seen. The soft tissues are unremarkable. The celiac and mesenteric arteries are intact. The renal artery is intact. The right iliac and left iliac arteries are intact. The liver is normal. The gallbladder is unremarkable. There is no evidence of stones or ductal dilatation. The pancreas, spleen and adrenals and kidneys are unremarkable. There is no evidence of bowel obstruction or localized bowel wall thickening. There is nothing to suggest an acute appendix. IMPRESSION: There are no acute findings demonstrated in the chest, abdomen or pelvis.
--- NOTE | 2018-12-25 22:31 | NUR.NOTE ---
Nursing Note: After initial assessment pt had a large soft unformed to water BM. Got pt cleaned up and sheets changed then pt went to CT via stretcher on monitor with RN
[2018-12-25 22:34] LABS: ALT 23 U/L (12-78); AST 13 U/L (15-37); Albumin 3.2 g/dL (3.4-5.0); Alkaline Phosphatase 65 U/L (46-116); Anion Gap 10.5 mmol/L (3-11); BUN 23 mg/dL (7-18); Bilirubin, Total 0.3 mg/dL (0.2-1.0); CO2 28.5 mmol/L (21.0-32.0); CREATININE 1.34 mg/dL (0.55-1.02); Calcium 8.3 mg/dL (8.5-10.1); Chloride 104 mmol/L (98-107); Estimated GFR 40.48 (mL/min/1.73m2); Glucose 119 mg/dL (70-100); Sodium 143 mmol/L (136-145); Total Protein 6.2 g/dL (6.4-8.2)
[2018-12-25 22:44] LABS: Magnesium 1.7 mg/dL (1.8-2.4); NT-proBNP 70 pg/mL; Potassium 2.5 mmol/L (3.5-5.1); Troponin I < 0.02 ng/mL (0.00-0.06)
--- NOTE | 2018-12-25 22:46 | DI.VRAD_ITS ---
EXAM: CT Angiography Chest With Contrast EXAM DATE/TIME: 12/25/2018 9:54 PM CLINICAL HISTORY: 58 years old, female; Other: Syncope, hypotension TECHNIQUE: Imaging protocol: Axial computed tomographic angiography images of the chest with intravenous contrast using CT angiography protocol. Coronal and sagittal reformatted images were created and reviewed. 3D rendering: MIP reconstructed images were created and reviewed. Radiation optimization: All CT scans at this facility use at least one of these dose optimization techniques: automated exposure control; mA and/or kV adjustment per patient size (includes targeted exams where dose is matched to clinical indication); or iterative reconstruction. Contrast material: OMNIPAQUE 350; Contrast volume: 100 ml; Contrast route: IV LAC; COMPARISON: CT CHEST WITH CONTRAST 12/29/2016 8:55 AM FINDINGS: Pulmonary arteries: Unremarkable. No obvious pulmonary emboli. Aorta: Unremarkable. No aortic aneurysm. No aortic dissection. Lungs: Unremarkable. No consolidation. No masses. No suspicious nodules. Pleural space: Unremarkable. No pneumothorax. No pleural effusion. Heart: Unremarkable. No pericardial effusion. No obvious heart strain. Lymph nodes: Unremarkable. No enlarged lymph nodes. Bones/joints: Unremarkable. No acute fracture. Soft tissues: Unremarkable. IMPRESSION: No acute findings. EXAM: CT Angiography Abdomen and Pelvis With Contrast EXAM DATE/TIME: 12/25/2018 9:54 PM CLINICAL HISTORY: 58 years old, female; Other: Syncope, hypotension TECHNIQUE: Imaging protocol: Axial computed tomographic angiography images of the abdomen and pelvis with intravenous contrast material. Coronal and sagittal reformatted images were created and reviewed. 3D rendering: MIP reconstructed images were created and reviewed. Radiation optimization: All CT scans at this facility use at least one of these dose optimization techniques: automated exposure control; mA and/or kV adjustment per patient size (includes targeted exams where dose is matched to clinical indication); or iterative reconstruction. Contrast material: OMNIPAQUE 350; Contrast volume: 100 ml; Contrast route: IV LAC; COMPARISON: CT CHEST WITH CONTRAST 12/29/2016 8:55 AM FINDINGS: VASCULATURE: Aorta: No aortic aneurysm. No aortic dissection. Celiac trunk and mesenteric arteries: No occlusion or significant stenosis. Renal arteries: No occlusion or significant stenosis. Right iliac arteries: No occlusion or significant stenosis. Left iliac arteries: No occlusion or significant stenosis. ABDOMEN: Liver: No mass. Gallbladder and bile ducts: Unremarkable. No calcified stones. No ductal dilation. Pancreas: Unremarkable. No mass. No ductal dilation. Spleen: Unremarkable. No splenomegaly. Adrenals: Unremarkable. No mass. Kidneys and ureters: Unremarkable. No solid mass. No hydronephrosis. Stomach and bowel: Unremarkable. No obstruction. No mucosal thickening. Appendix: No evidence of appendicitis. PELVIS: Bladder: Unremarkable. No mass. Reproductive: Unremarkable as visualized. ABDOMEN and PELVIS: Intraperitoneal space: Unremarkable. No free air. No significant fluid collection. Bones/joints: No acute fracture. No dislocation. Soft tissues: Unremarkable. Lymph nodes: Unremarkable. No enlarged lymph nodes. IMPRESSION: No acute findings. Dictated and Authenticated by: Samson Schwab MD. Ordering:DONTA Tobar MD
[2018-12-25] MEDS: Potassium Chloride 20 MEQ TABCR 40 MEQ PO (22:58)
[2018-12-25] MEDS: POTASSIUM CHLORIDE 20 MEQ/100 ML BAG 50 MEQ IVPB (22:59)
[2018-12-25 23:08] LABS: INR 1.1 (0.9-1.1); PTT Activated 20.4 sec (21.0-31.4); Prothrombin Time 10.9 sec (9.3-11.0)
[2018-12-25] MEDS: Hydrocortisone SOD SUC. 100 MG VIAL IVP (23:43)
[2018-12-25 23:50] LABS: Bilirubin Negative (Negative); Blood Trace-intact (Negative); Clarity Clear; Glucose Negative (Negative); Ketones Negative (Negative); Leukocyte Esterase Negative (Negative); Nitrite Negative (Negative); Specific Gravity <= 1.005 (1.005-1.025); Urobilinogen 0.2 EU/dL (Up TO 0.2); pH 6.5 (5-8)
[2018-12-26] LABS: Bacteria Many HPF (Negative); C & S Indicated? No/Sq. Contamination; Casts Negative LPF (Negative); Crystals Negative HPF (Negative); Epithelial Cells Moderate HPF (Negative); Mucus Trace (Negative)
[2018-12-26 00:03] LABS: *AMPHETAMINES SCREEN URINE Negative (Negative); *BARBITURATES SCREEN URINE Negative (Negative); *BENZODIAZEPINES SCREEN URINE Negative (Negative); Cannabinoids THC Negative (Negative); Cocaine Screen,Urine Negative (Negative); METHADONE URINE SCREEN Negative (Negative); OPIATES URINE SCREEN Negative (Negative)
[2018-12-26 00:06] LABS: Tricyclic Antidepressants Negative (Negative)
== END 2018-12-26 00:09 | disposition left against medical advice (07) ==
PROVIDERS: Emergency Medicine; Emergency Provider Physician Assistant; PCP Family Medicine
DX: I95.9 Hypotension, unspecified (principal); R55 Syncope and collapse; E87.6 Hypokalemia; I10 Essential (primary) hypertension
CPT/HCPCS: 36415; 71275; 74177; 80053; 80307; 82533; 93005; 96361; 96365; 96366; 96368; 96375; 96376; 99285; 81003; 81015; 82024; 83605; 83735; 83880; 84484; 85025; 85610; 85730; 93010; J1720; J3480; J3490

== ENCOUNTER 2018-12-26 11:18 | Outpatient (REF) | payer MEDICAID, SELFPAY ==
[2018-12-26 20:06] LABS: Anion Gap 8.2 mmol/L (3-11); BUN 21 mg/dL (7-18); CO2 28.8 mmol/L (21.0-32.0); Calcium 8.8 mg/dL (8.5-10.1); Chloride 104 mmol/L (98-107); Glucose 140 mg/dL (70-100); Potassium 3.4 mmol/L (3.5-5.1); Sodium 141 mmol/L (136-145)
== END 2018-12-26 11:38 ==
LOC: NCHCN 11:18
PROVIDERS: PCP Family Medicine; Visit Provider Family Medicine
DX: I10 Essential (primary) hypertension (principal)
CPT/HCPCS: 80048

== ENCOUNTER 2019-07-01 12:47 | Outpatient (CLI) | payer MEDICAID, SELFPAY ==
[2019-07-01 14:08] LABS: BUN 12 mg/dL (7-18); CREATININE 0.75 mg/dL (0.55-1.02); Chloride 101 mmol/L (98-107); Glucose 97 mg/dL (74-106); Potassium 3.1 mmol/L (3.5-5.1); Sodium 143 mmol/L (136-145)
[2019-07-02 09:34] LABS: Hemoglobin A1C 6.1 % (3.8-5.6)
== END 2019-07-01 13:07 ==
PROVIDERS: PCP Family Medicine; Visit Provider Family Medicine
DX: I10 Essential (primary) hypertension (principal); R73.03 Prediabetes; E86.0 Dehydration
CPT/HCPCS: 36415; 80048; 83036

== ENCOUNTER 2019-07-31 07:47 | Outpatient (CLI) | payer MEDICAID, SELFPAY ==
[2019-07-31 09:06] LABS: Anion Gap 8.8 mmol/L (3-11); BUN 11 mg/dL (7-18); CO2 32.2 mmol/L (21.0-32.0); CREATININE 0.79 mg/dL (0.55-1.02); Calcium 9.2 mg/dL (8.5-10.1); Chloride 103 mmol/L (98-107); Glucose 133 mg/dL (74-106); Potassium 3.4 mmol/L (3.5-5.1); Sodium 144 mmol/L (136-145)
== END 2019-07-31 08:07 ==
PROVIDERS: PCP Family Medicine; Visit Provider Family Medicine
DX: I10 Essential (primary) hypertension (principal)
CPT/HCPCS: 36415; 80048

== ENCOUNTER 2019-08-19 02:43 | Outpatient (CLI) | payer MEDICAID, SELFPAY ==
--- NOTE | 2019-08-19 12:02 | PFT_ITS ---
PULMONARY FUNCTION TEST REPORT Patient - Ansley Jaramillo DATE OF SERVICE August 19, 2019 REQUESTING PROVIDER Kira Johnson M.D. INTERPRETATION OF STUDY Spirometry shows no evidence of obstructive airways disease. No bronchodilator response. LUNG VOLUMES - Lung volumes show no evidence of restriction. DIFFUSION CAPACITY- Mildly reduced, which is normal when corrected alveolar volume. AIRWAY RESISTANCE - Normal. IMPRESSION Overall normal pulmonary function study. The borderline mild diffusion defect is likely an effort related phenomenon, this is normal when corrected to alveolar volume. When this study was compared to previous one from 08/30/2016, the patient has a stable FVC and FEV1, and diffusion capacity. Leann Felix M.D. Nicole T- 08/21/19
[2019-08-19] MEDS: Inhaler, Assist Device 1 EACH MC (14:03)
[2019-08-19] MEDS: Albuterol HFA 18 GM 200 PUFF INH IH (14:03)
== END 2019-08-19 03:03 ==
PROVIDERS: PCP Family Medicine; Visit Provider Family Medicine
DX: R06.09 Other forms of dyspnea (principal); R05 Cough; F17.210 Nicotine dependence, cigarettes, uncomplicated
CPT/HCPCS: 94060; 94726; 94729

== ENCOUNTER 2019-10-08 11:13 | Outpatient (CLI) | payer MEDICAID, SELFPAY ==
[2019-10-11 15:54] LABS: SARS-CoV-2 RNA Undetected (Undetected); SARS-CoV-2 Specimen Source Nasal
== END 2019-10-08 11:33 ==
PROVIDERS: PCP Family Medicine; Visit Provider Nurse Practitioner Family
DX: Z20.828 Contact with and (suspected) exposure to other viral communicable diseases (principal)
CPT/HCPCS: U0003

== ENCOUNTER 2020-05-13 10:48 | Outpatient (REF) | payer MEDICAID, SELFPAY ==
[2020-05-17 22:45] LABS: Patient Race White; SARS-CoV-2 RNA Undetected (Undetected); SARS-CoV-2 Specimen Source Nasal
== END 2020-05-13 11:08 ==
LOC: NCHCN 10:48
PROVIDERS: PCP Family Medicine; Visit Provider Family Medicine
DX: R05 Cough (principal)
CPT/HCPCS: U0003

== ENCOUNTER 2020-05-25 00:15 | Outpatient (CLI) | payer MEDICAID, SELFPAY ==
--- NOTE | 2020-05-25 | DI.CT_ITS ---
EXAM: CT CHEST W CLINICAL HISTORY: COUGH,R05,TOBACCO ABUSE,F17.200 TECHNIQUE: Imaging Protocol: Axial computed tomography images with coronal and sagittal reformatted images were created and reviewed CONTRAST MATERIAL: Intravenous: Omnipaque 350 Contrast volume:70 mL. COMPARISON: CT CT thorax abd/pel CTA from 12/25/2018 FINDINGS: Tracheobronchial tree: Patent where visualized. Mediastinum and Ynes: No dominant adenopathy or fluid collection. Pulmonary parenchyma: No consolidation or dominant measurable mass. No architectural distortion. Pleura: No effusion or pneumothorax. Heart: The heart is not dilated. No coronary artery calcifications are seen. No pericardial effusion. Aorta: Thoracic aorta non-dilated. Moderate atherosclerosis. Upper abdomen: Diffuse fatty infiltration of the liver. Status post cholecystectomy. Lymph nodes: Within normal limits. Bones: Degenerative changes are seen in the spine. There is a hemangioma in the T9 vertebral body. Soft tissues: Unremarkable. IMPRESSION: No evidence of a thoracic mass or adenopathy. Atherosclerosis. RADIATION DOSE DELIVERED: 569.24mGy.cm Total DLP DATA REPOSITORY: All CT scans at this facility are submitted to the National Radiology Data Registry (NRDR) Dose Index Registry (DIR) with the [employer] (ACR). RADIATION OPTIMIZATION: All CT scans at this facility use at least one of these dose optimization te chniques: automated exposure control; mA and/or kV adjustment per patient size (includes targeted exa ms where dose is matched to clinical indication); or iterative reconstruction.
[2020-05-25 09:49] LABS: Hemoglobin A1C 6.1 % (<5.7)
[2020-05-25 10:00] LABS: Anion Gap 4.3 mmol/L (3-11); BUN 15 mg/dL (7-18); CO2 30.7 mmol/L (21.0-32.0); CREATININE 0.92 mg/dL (0.55-1.02); Calcium 8.8 mg/dL (8.5-10.1); Chloride 107 mmol/L (98-107); Glucose 131 mg/dL (74-106); Potassium 4.2 mmol/L (3.5-5.1); Sodium 142 mmol/L (136-145)
[2020-05-25 10:20] LABS: TSH (W/Ref FT4) 2.11 uIU/mL (0.36-3.74)
[2020-05-25] MEDS: Omnipaque 350 MG/ML 100 ML BTL IJ (10:45)
[2020-05-25] MEDS: Normal Saline - Diluent 50 ML VIAL IV (10:46)
== END 2020-05-25 00:35 ==
PROVIDERS: PCP Family Medicine; Visit Provider Family Medicine
DX: R05 Cough (principal); F17.200 Nicotine dependence, unspecified, uncomplicated; I70.0 Atherosclerosis of aorta; I10 Essential (primary) hypertension; R73.03 Prediabetes
CPT/HCPCS: 80048; 71260; 83036; 84443; J3490

== ENCOUNTER 2020-07-08 15:28 | Outpatient (REF) | payer MEDICAID, SELFPAY ==
[2020-07-10 16:39] LABS: COVID-19 RT-PCR UVMMC Result Negative (Negative)
== END 2020-07-08 15:48 ==
LOC: NCHCN 15:28
PROVIDERS: PCP Family Medicine; Visit Provider Family Medicine
DX: J06.9 Acute upper respiratory infection, unspecified (principal)
CPT/HCPCS: U0003

== ENCOUNTER 2020-08-06 06:58 | Emergency (ER) | payer MEDICAID, SELFPAY ==
--- NOTE | 2020-08-06 06:59 | ED.GENADUL_ITS ---
Discharge Plan Disposition Patient Disposition: HOME Condition: Good Discharge Details Clinical Impression: UTI (urinary tract infection) Primary Care Provider: Kira Johnson ED Provider: Daljit Cordero Udell Meds and New Rx's Prescriptions: New phenazopyridine [Pyridium] 100 mg tablet 100 mg PO TID Qty: 5 RF: 0 nitrofurantoin monohyd/m-cryst [Macrobid] 100 mg capsule 100 mg PO BID Qty: 9 RF: 0 Continued amlodipine 5 MG tablet 5 mg PO DAILY RF: 0 dexmethylphenidate [Focalin XR] 10 MG capsule,ER biphasic 50-50 30 mg PO DAILY RF: 0 Advair HFA 8 GM HFA aerosol inhaler 8 gm Inhalation DAILY RF: 0 buprenorphine-naloxone [Suboxone] 1 EACH film 1 ea Sublingual DAILY RF: 0 spironolactone 25 mg tablet 25 mg PO DAILY RF: 0 Chantix 0.5 mg tablet 0.5 mg PO DAILY RF: 0 losartan 100 mg tablet 100 mg PO DAILY RF: 0 rosuvastatin [Crestor] 20 mg tablet 20 mg PO DAILY RF: 0 pantoprazole [Protonix] 40 mg tablet,delayed release (DR/EC) 40 mg PO DAILY RF: 0 albuterol sulfate [ProAir HFA] 90 mcg/actuation HFA aerosol inhaler 2 puff inhalation Q6H PRNRF: 0 triamcinolone acetonide 0.1 % cream 1 applic topical BID RF: 0 clotrimazole [Antifungal (clotrimazole)] 1 % cream 1 applic topical BID RF: 0 benzonatate 100 mg capsule 100 mg PO BID PRNRF: 0 levothyroxine 25 MCG tablet 50 mcg PO DAILY RF: 0 potassium chloride 20 MEQ tablet,ER particles/crystals 20 meq PO BID RF: 0 lisinopril 20 MG tablet 40 mg PO DAILY RF: 0 Discharge Instructions Instructions: Urinary Tract Infection in Women (ED) Additional Instructions: Take antibiotic as directed. Pyridium for the first 2 days to help with symptoms. Follow-up with primary care next week if not better. Return to ED if spiking fever, back pain, vomiting, abdominal pain. Referrals: Kira Johnson MD [Primary Care Provider] - Medical Decision Making Patient only able to provide enough urine for culture. Has no systemic signs suggesting complicated UTI. We will start her on Pyridium and Macrobid pending culture results. Follow-up with primary care next week if not better. Return to ED if fever, vomiting, back pain, other concerns. HPI General Mode of arrival: ambulatory . Date/Time Provider Initiated Documentation: 08/06/20 06:59 . Limitations to Documentation: no limitations . Information obtained by: patient and RN notes reviewed . HPI Narrative: Patient presents to ED with urinary urgency, dysuria, hematuria onset this morning. Has history of UTIs and this feels exactly the same as previous. She denies any back pain, vomiting, fever, shaking chills, abdominal pain. She is simply very uncomfortable with persistent urgency and significant pain with urination. Related Data Home Medications Medication Instructions Recorded Confirmed levothyroxine 50 mcg PO DAILY 10/14/16 08/06/20 potassium chloride 20 meq PO BID 10/14/16 08/06/20 lisinopril 40 mg PO DAILY 11/16/17 08/06/20 Advair HFA 8 gm INHALATION DAILY inhaler 01/16/18 08/06/20 amlodipine 5 mg PO DAILY tab-cap 01/16/18 08/06/20 buprenorphine-naloxone [Suboxone] 1 ea SUBLINGUAL DAILY film 01/16/18 08/06/20 dexmethylphenidate [Focalin XR] 30 mg PO DAILY tab-cap 01/16/18 08/06/20 albuterol sulfate 90 mcg/actuation 2 puff INHALATION Q6H PRN 05/22/20 08/06/20 aerosol inhaler benzonatate 100 mg capsule 100 mg PO BID PRN 05/22/20 08/06/20 clotrimazole 1 % topical cream 1 applic TOPICAL BID 05/22/20 08/06/20 losartan 100 mg tablet 100 mg PO DAILY 05/22/20 08/06/20 pantoprazole 40 mg tablet,delayed 40 mg PO DAILY 05/22/20 08/06/20 release rosuvastatin 20 mg tablet 20 mg PO DAILY 05/22/20 08/06/20 spironolactone 25 mg tablet 25 mg PO DAILY 05/22/20 08/06/20 triamcinolone acetonide 0.1 % 1 applic TOPICAL BID 05/22/20 08/06/20 topical cream varenicline 0.5 mg tablet 0.5 mg PO DAILY 05/22/20 08/06/20 nitrofurantoin monohyd/m-cryst 100 mg PO BID #9 cap 08/06/20 [Macrobid] phenazopyridine [Pyridium] 100 mg PO TID #5 tab 08/06/20 Previous Rx's Medication Instructions Recorded nitrofurantoin monohyd/m-cryst 100 mg PO BID #9 cap 08/06/20 [Macrobid] phenazopyridine [Pyridium] 100 mg PO TID #5 tab 08/06/20 Allergies Allergy/AdvReac Type Severity Reaction Status Date / Time No Known Allergies Allergy Unverified 08/06/20 07:11 General KAY: 2 Review of Systems Narrative: As documented in HPI otherwise negative as below. Const: no fever, chills Resp: no cough, SOB GI: no abdominal pain, nausea, vomiting, diarrhea PFSH Medical History Depression GERD (gastroesophageal reflux disease) Hepatitis C antibody test positive neg viral load Hx of opioid abuse takes Suboxone daily Hyperlipidemia Hypertension Hypokalemia due to inadequate potassium intake Surgical History History of hysterectomy Social History Smoking/Tobacco Use Status: Current every day Tobacco Type: cigarettes Smoking risk assessment performed?: Yes Alcohol Intake: never Drug use: Current Sobriety Substance use type: does not use Details: 7 years on daily suboxone Number of Children: 4 current occupation: works at [employer]. Lifts heavy metal daily Seatbelt use: always Do you feel safe at home: Yes Do you feel safe in your relationship?: Yes History History 4 Para Hx # Term Pregnancies 4 Multiple births Hx # Pregnancies Ectopic pregnancies AB induced Hx Number of Living Children AB spontaneous Exam Narrative Exam Narrative: Const: WDWN female appears uncomfortable. HEENT: NC/AT. Normal facial exam. Neck: Supple. Trachea midline. Lungs: Normal respiratory effort. GI: Soft. NT/ND. Back: No CVAT Neuro: A+O x 3. Normal speech, mentation, gait. Cranial nerves II - XII grossly intact. No gross motor or sensory deficit.
[2020-08-06 07:06] VITALS: BP 194/112; PULSE 110; RESP 16; TEMP 36.2; O2SAT 99
[2020-08-06] MEDS: MacroBID 100 MG CAP PO (07:17)
[2020-08-06] MEDS: Phenazopyridine 100 MG TAB PO (07:17)
== END 2020-08-06 07:28 | disposition home or self-care (01) ==
PROVIDERS: Emergency Provider Emergency Medicine; PCP Family Medicine
DX: N39.0 Urinary tract infection, site not specified (principal); B96.20 Unspecified Escherichia coli [E. coli] as the cause of diseases classified elsewhere; Z87.440 Personal history of urinary (tract) infections; I10 Essential (primary) hypertension
CPT/HCPCS: 87077; 99283; 81003; 87086; 87186

== ENCOUNTER 2021-09-15 17:12 | Outpatient (REF) | payer MEDICAID, SELFPAY ==
[2021-09-15 19:44] LABS: Hemoglobin A1C 6.3 % (<5.7)
[2021-09-15 19:46] LABS: Iron 47 ug/dL (50-170); Total Iron Binding Capacity 454 ug/dL (250-450); Transferrin Sat 10 % (15-50)
[2021-09-15 19:57] LABS: ALT 91 U/L (14-59); AST 39 U/L (15-37); Albumin 3.6 g/dL (3.4-5.0); Alkaline Phosphatase 131 U/L (46-116); BUN 14 mg/dL (7-18); Bilirubin, Total 0.3 mg/dL (0.2-1.0); CREATININE 0.6 mg/dL (0.55-1.02); Calcium 8.8 mg/dL (8.5-10.1); Chloride 101 mmol/L (98-107); Ferritin 157 ng/mL (8-252); Glucose 138 mg/dL (74-106); Sodium 137 mmol/L (136-145); Total Protein 7.8 g/dL (6.4-8.2)
[2021-09-15 20:22] LABS: FREE T4 0.93 ng/dL (0.76-1.46)
[2021-09-17 10:04] LABS: HBs Antibody, Quant <3.1 mIU/mL (See Note); Hepatitis B Surface Ab Negative (See Note); Hepatitis B Surface Ag Negative (Negative)
[2021-09-17 10:40] LABS: Hep B Core Antibody Negative (Negative)
[2021-09-17 10:51] LABS: HIV-1/2 Ag & Ab Screen Negative (Negative)
[2021-09-17 11:13] LABS: Hepatitis C Ab w Rflx HCV PCR Reactive (Negative)
[2021-09-30 09:20] LABS: HCV RNA Qualitative Detected (Undetected)
[2021-09-30 09:22] LABS: HCV RNA Detection Quantitative <15 IU/mL (Undetected)
== END 2021-09-15 17:13 | disposition home or self-care (01) ==
LOC: NCHCN 17:12
PROVIDERS: PCP Family Medicine; Visit Provider Family Medicine
DX: I10 Essential (primary) hypertension (principal); R73.03 Prediabetes; R79.89 Other specified abnormal findings of blood chemistry; E03.9 Hypothyroidism, unspecified; Z11.4 Encounter for screening for human immunodeficiency virus [HIV]; Z11.59 Encounter for screening for other viral diseases
CPT/HCPCS: 80053; 86704; 86706; 86803; 87340; 87389; 87522; 82728; 83036; 83540; 83550; 84439; 84443

== ENCOUNTER 2021-11-05 00:37 | Outpatient (CLI) | payer MEDICAID, SELFPAY ==
--- NOTE | 2021-11-05 | DI.CTLCSR_ITS ---
Exam(s) CT CHEST LUNG CANCER SCREEN EXAM: CT CHEST LUNG CANCER SCREEN CLINICAL HISTORY: TOBACCO ABUSE-NORMAL PFTS 08/2016, F17.200 TECHNIQUE: Imaging Protocol: Axial computed tomography images with coronal and sagittal reformatted images were created and reviewed COMPARISON: CT CT CHEST W from 05/25/[address] ABDOMEN PELVIS W CONTRAST from 09/07/2021 FINDINGS: Tracheobronchial tree: Patent where visualized. Mediastinum and Ynes: No dominant adenopathy or fluid collection. Pulmonary parenchyma: No consolidation or dominant measurable mass. Previously noted areas of increa sed density at the lung bases on prior abdomen CT no longer present. Lung Nodules: None. Pleura: No effusion or pneumothorax. Heart: The heart is not dilated. No coronary artery calcifications are seen. Aorta: Thoracic aorta non-dilated.Atherosclerotic changes. Upper abdomen: Unremarkable. Status post cholecystectomy. Bones: Within normal limits. Soft Tissues: Unremarkable. IMPRESSION: No suspicious pulmonary nodules. Lung RADS Cat 1 - Negative: No nodules and definitely benign nodules Lung-RADS 1.0 CATEGORIES: Category 0 - Prior chest CT exam(s) being located for comparison. Category 1 - Annual screening in 12 months. No nodules or definitely benign nodules. Category 2 - Annual screening in 12 months. Benign appearance. Nodules with low likelihood of becomin g active cancer. Category 3 - 6-month follow-up. Probably benign. Short-term follow-up suggested. Nodules with low lik elihood of becoming active cancer. Category 4A - 3-month follow-up and CT/PET if >8 mm in size. Suspicious finding. Findings which requi re additional testing. Category 4B - Findings which require additional testing and tissue sampling. Category 4X - Category 3 or 4 nodules with additional features or imaging findings that increases the suspicion of malignancy. Modifier S- Potentially clinically significant findings (non lung cancer) RADIATION DOSE DELIVERED: 77.86mGy.cm Total DLP 1.84mGy CTDIvol DATA REPOSITORY: All CT scans at this facility are submitted to the National Radiology Data Registry (NRDR) Dose Index Registry (DIR) with the [employer] (ACR). RADIATION OPTIMIZATION: All CT scans at this facility use at least one of these dose optimization te chniques: automated exposure control; mA and/or kV adjustment per patient size (includes targeted exa ms where dose is matched to clinical indication); or iterative reconstruction.
== END 2021-11-05 00:57 ==
PROVIDERS: PCP Family Medicine; Visit Provider Family Medicine
DX: Z12.2 Encounter for screening for malignant neoplasm of respiratory organs (principal); F17.200 Nicotine dependence, unspecified, uncomplicated
CPT/HCPCS: 71271

== ENCOUNTER 2021-11-11 21:31 | Outpatient (REF) | payer MEDICAID, SELFPAY ==
[2021-11-16 06:34] LABS: EDDP-by GC-MS Negative ng/mL (Cutoff: 100); Methadone Interpretation Negative.; Methadone-by GC-MS Negative ng/mL (Cutoff: 100)
[2021-11-16 13:27] LABS: Codeine Negative ng/mL (Cutoff: 25); Dihydrocodeine Negative ng/mL (Cutoff: 25); Hydrocodone Negative ng/mL (Cutoff: 25); Hydromorphone Negative ng/mL (Cutoff: 25); Morphine Negative ng/mL (Cutoff: 25); Naloxone 4311 ng/mL (Cutoff: 25); Norhydrocodone Negative ng/mL (Cutoff: 25); Noroxycodone Negative ng/mL (Cutoff: 25); Noroxymorphone 104 ng/mL (Cutoff: 25); Opiates Interpretation Positive.
[2021-11-17 03:14] LABS: Fentanyl Interpretation Positive.; Fentanyl by LC-MS/MS Negative; Norfentanyl by LC-MS/MS 1.1 ng/mL
== END 2021-11-11 21:32 | disposition home or self-care (01) ==
LOC: NCHCN 21:31
PROVIDERS: PCP Family Medicine; Visit Provider Family Medicine
DX: F11.20 Opioid dependence, uncomplicated (principal); F14.10 Cocaine abuse, uncomplicated
CPT/HCPCS: 80361; 80362; 80365; 80354; 80358

== ENCOUNTER 2021-11-11 21:49 | Outpatient (REF) | payer MEDICAID, SELFPAY | END 2021-11-11 21:50 | disposition home or self-care (01) | LOC: NCHCN 21:49 | PROVIDERS: PCP Family Medicine; Visit Provider Family Medicine ==

== ENCOUNTER 2022-01-05 00:56 | Outpatient (CLI) | payer MEDICAID, SELFPAY | END 2022-01-05 01:16 | LOC: DI 00:56 | PROVIDERS: PCP Family Medicine; Visit Provider Family Medicine | CPT/HCPCS: 82565 ==

== ENCOUNTER 2022-03-09 15:10 | Outpatient (REF) | payer MEDICAID, SELFPAY ==
[2022-03-15 11:49] LABS: Methylphenidate Negative ng/mL (Cutoff: 10); Ritalinic Acid 234 ng/mL (Cutoff: 50)
[2022-03-15 14:20] LABS: Codeine Negative ng/mL (Cutoff: 25); Dihydrocodeine Negative ng/mL (Cutoff: 25); Hydrocodone Negative ng/mL (Cutoff: 25); Hydromorphone Negative ng/mL (Cutoff: 25); Morphine Negative ng/mL (Cutoff: 25); Naloxone 22598 ng/mL (Cutoff: 25); Norhydrocodone Negative ng/mL (Cutoff: 25); Noroxycodone Negative ng/mL (Cutoff: 25); Noroxymorphone Negative ng/mL (Cutoff: 25); Opiates Interpretation Positive.
== END 2022-03-09 15:11 | disposition home or self-care (01) ==
LOC: NCHCN 15:10
PROVIDERS: PCP Family Medicine; Visit Provider Family Medicine
DX: F11.20 Opioid dependence, uncomplicated (principal)
CPT/HCPCS: 80360; 80361; 80362; 80365

== ENCOUNTER 2024-06-26 21:50 | Outpatient (REF) | payer MEDICARE, MEDICAID, SELFPAY ==
[2024-06-26 21:44] LABS: COMMENT (LAB VIEW ONLY) 188.45 mg/dL; Microalb ug/mg Crea 41.7 ug/mg Cr
== END 2024-06-26 21:51 | disposition home or self-care (01) ==
LOC: NCHCN 21:50
PROVIDERS: PCP Family Medicine; Visit Provider Nurse Practitioner Family
DX: I10 Essential (primary) hypertension (principal)
CPT/HCPCS: 82043; 82570

== ENCOUNTER 2024-08-02 00:49 | Outpatient (CLI) | payer MEDICARE, MEDICAID, SELFPAY ==
--- NOTE | 2024-08-02 | DI.CTLCSR_ITS ---
Exam(s) CT CHEST LUNG CANCER SCREEN EXAM: CT CHEST LUNG CANCER SCREEN CLINICAL HISTORY: SCREENING FOR LUNG CA, TOBACCO DEPENDENCE CIGARETTES,f17.210. TECHNIQUE: Imaging Protocol: Low Dose Technique CONTRAST MATERIAL: None COMPARISON: CT CT CHEST LUNG CANCER SCREEN from 11/05/2021 FINDINGS: CHEST: LUNGS: There are no ominous pulmonary nodules. There is platelike atelectasis in the lingular segment of the left lung and benign-appearing subpleural increased markings in the inferior aspect of the ri ght middle lobe. No pleural effusions. MEDIASTINUM: There is no obvious hilar nor mediastinal adenopathy. CARDIAC: Heart size is normal. There is no pericardial effusion.Descending thoracic aorta is is slig htly prominent measuring 3.9 cm.. This is unchanged from October 2021. OTHER: Gallbladder is surgically absent. OSSEOUS: No significant osseous lesions.. IMPRESSION: 1. Benign-appearing lung findings. No suspicious lung nodules. No pleural effusions nor intrathorac ic adenopathy. 2. Prominent ascending thoracic aorta diameter again noted. 3. Lung RADS Cat 2S - Benign Appearance / Behavior: Nodules with a very low likelihood of becoming a clinically active caner due to size or lack of growth. Other: Clinically Significant or Potentially C linically Significant Findings (non lung cancer) Lung-RADS 1.0 CATEGORIES: Category 0 - Prior chest CT exam(s) being located for comparison. Category 1 - Annual screening in 12 months. No nodules or definitely benign nodules. Category 2 - Annual screening in 12 months. Benign appearance. Nodules with low likelihood of becomin g active cancer. Category 3 - 6-month follow-up. Probably benign. Short-term follow-up suggested. Nodules with low lik elihood of becoming active cancer. Category 4A - 3-month follow-up and CT/PET if >8 mm in size. Suspicious finding. Findings which requi re additional testing. Category 4B - Findings which require additional testing and tissue sampling. Category 4X - Category 3 or 4 nodules with additional features or imaging findings that increases the suspicion of malignancy. Modifier S- Potentially clinically significant findings (non lung cancer) RADIATION DOSE DELIVERED: 40.94mGy.cm Total DLP DATA REPOSITORY: All CT scans at this facility are submitted to the National Radiology Data Registry (NRDR) Dose Index Registry (DIR) with the [employer] (ACR). RADIATION OPTIMIZATION: All CT scans at this facility use at least one of these dose optimization te chniques: automated exposure control; mA and/or kV adjustment per patient size (includes targeted exa ms where dose is matched to clinical indication); or iterative reconstruction.
--- NOTE | 2024-08-02 | DI.MAMMO_ITS ---
Exam(s) MAMMO SCREENING EXAM: MAMMO SCREENING CLINICAL HISTORY: SCREENING, Z12.39. TECHNIQUE: Bilateral full field digital CC and MLO mammographic images were obtained with 3D tomosyn thesis and utilizing computer aided detection (CAD). COMPARISON: Prior mammogram of 2017 was reviewed. There are no interval mammograms since 2017. FINDINGS: There has been no significant change in the appearance and distribution of the fibroglandular tissue. No new left breast findings Small benign-appearing nodule in the right breast is unchanged from 2017 and therefore benign. There are no new spiculated masses nor new malignant appearing microcalcification groups. There is no significant architectural distortion nor skin thickening-retraction. IMPRESSION: Stable benign findings. No radiographic evidence of malignancy. BI-RADS Category 1 - Negative Breast Density - Category B - Scattered areas of fibroglandular density Breast density Category C or D implies that the patient has dense breast tissue. Dense breast tissue can make it harder to find cancer on a mammogram. Dense breast tissue is also associated with an incr eased risk of breast cancer. This information about the result of the mammogram report was provided to the patient to raise their awareness. Use this report when you speak with the patient about their risks for breast cancer, which includes their family history. At that time, you may recommend additional screening tests (Ultrasoun d or MRI) as these tests may add significant information. A negative radiographic report should not delay biopsy if a dominant or clinically suspicious mass is present. Up to ten percent of cancers are not identified on mammography. A negative report may reinforce clinical impression. Adenosis and dense breasts may obscure an underlying neoplasm. False positive reports average 6 to 10%. Patient will receive a letter notifying them of these results.
== END 2024-08-02 01:09 ==
PROVIDERS: PCP Family Medicine; Visit Provider Nurse Practitioner Family
DX: Z12.31 Encounter for screening mammogram for malignant neoplasm of breast (principal); R92.323 Mammographic fibroglandular density, bilateral breasts; Z12.2 Encounter for screening for malignant neoplasm of respiratory organs; F17.210 Nicotine dependence, cigarettes, uncomplicated
CPT/HCPCS: 71271; 77063; 77067

== ENCOUNTER 2024-08-23 14:26 | Outpatient (REF) | payer MEDICARE, MEDICAID, SELFPAY ==
[2024-08-29 12:04] LABS: Methylphenidate Negative ng/mL (Cutoff: 10); Ritalinic Acid Negative ng/mL (Cutoff: 50)
== END 2024-08-23 14:27 | disposition home or self-care (01) ==
LOC: NCHCN 14:26
PROVIDERS: PCP Family Medicine; Visit Provider Nurse Practitioner Family
DX: F11.20 Opioid dependence, uncomplicated (principal)
CPT/HCPCS: 80360

== ENCOUNTER → 2024-08-29 11:24 | Outpatient (BNVA) | payer MEDICARE, MEDICAID, SELFPAY | PROVIDERS: PCP Family Medicine; Referring Provider Family Medicine; Visit Provider Physical Therapy Assistant | DX: R07.9 Chest pain, unspecified (principal); R73.03 Prediabetes; Z12.11 Encounter for screening for malignant neoplasm of colon | CPT/HCPCS: 99203 ==

== ENCOUNTER 2024-09-06 00:17 | Outpatient (CLI) | payer MEDICARE, MEDICAID, SELFPAY ==
[2024-09-06 15:17] LABS: Abs Immature Grans 0.03 10^3/uL (0.0-0.06); Absolute Basophil Count 0.04 10^3/uL (0.0-0.2); Absolute Eosinophil Count 0.26 10^3/uL (0.0-0.7); Absolute Lymphocyte Count 2.75 10^3/uL (1.2-3.4); Absolute Monocyte Count 0.47 10^3/uL (0.1-0.8); Absolute Neutrophil Count 5.29 10^3/uL (1.2-6.7); Basophils % 0.5 %; Eosinophils % 2.9 %; HCT 42.6 % (36.0-46.0); HGB 14.4 g/dL (11.2-15.7); Immature Grans % 0.3 %; Lymphocytes % 31.1 %; MCH 29.1 pg (27.0-33.0); MCHC 33.8 % (32.0-36.0); MCV 86 fL (80-95); MPV 9.2 fL (8.0-11.0); Monocytes % 5.3 %; Neutrophils % 59.9 %; Platelet Count 261 10^3/uL (130-400); RBC 4.95 10^6/uL (3.93-5.22); RDW 12.7 % (11.7-14.6); RDW-SD 39.3 fL; WBC 8.84 10^3/uL (4.4-10.8)
--- NOTE | 2024-09-06 15:39 | DI.RAD_ITS ---
Exam(s) XR KNEE RT 3V AP,LAT,ERICK EXAM: XR KNEE RT 3V AP,LAT,ERICK CLINICAL HISTORY: PAIN RT KNEE M25.561. TECHNIQUE: 2D digital imaging was performed. Three views. COMPARISON: No exams were available for comparison FINDINGS: BONES: No acute fracture is present. No bony destructive lesion is seen. JOINTS: Mild medial femoral tibial joint space narrowing and periarticular spurring. Mild spurring a t the articular aspect of the patella. The knee is normally aligned. No joint effusion is seen. SOFT TISSUE: Normal. IMPRESSION: Mild degenerative changes. DATA REPOSITORY: RADIATION DOSE DELIVERED:
--- NOTE | 2024-09-06 15:39 | DI.RAD_ITS ---
Exam(s) XR LUMBAR SPINE COMPLETE EXAM: XR LUMBAR SPINE COMPLETE CLINICAL HISTORY: LOW BACK PAIN M54.50. TECHNIQUE: 2D digital imaging was performed of the lumbar spine. Six images were obtained. AP, lat eral, right oblique, left oblique and L5-S1 spot views were obtained. COMPARISON: CT CT thorax abd/pel CTA from 12/25/2018 FINDINGS: BONES: No fracture or destructive lesion. There are endplate osteophytes at several levels of the lum bar spine, particularly at L1-L2. There are degenerative changes of the facets seen at L4-5 and L5-S1 . DISKS: There is disc space narrowing at L1-L2, L3-L4 and L4-L5. ALIGNMENT: There is a left convex lumbar scoliosis. There is no evidence of spondylolysis or spondyl olisthesis. SOFT TISSUE: There are surgical clips in the right upper quadrant of the abdomen suggesting prior cho lecystectomy. Atherosclerotic calcification is present. IMPRESSION: Moderate degenerative changes are present in the lumbar spine. DATA REPOSITORY: RADIATION DOSE DELIVERED:
[2024-09-06 15:47] LABS: ALT 39 U/L (14-59); AST 20 U/L (15-37); Albumin 3.8 g/dL (3.4-5.0); Alkaline Phosphatase 102 U/L (46-116); Anion Gap 8.2 mmol/L (3-11); BUN 20 mg/dL (7-18); Bilirubin, Total 0.33 mg/dL (0.2-1.0); CO2 29.8 mmol/L (21.0-32.0); CREATININE 0.8 mg/dL (0.55-1.02); Calcium 9.4 mg/dL (8.5-10.1); Chloride 104 mmol/L (98-107); Estimated GFR 81.72 (mL/min/1.73m2); Glucose 133 mg/dL (74-106); Potassium 3.8 mmol/L (3.5-5.1); Sodium 142 mmol/L (136-145)
--- NOTE | 2024-09-06 16:10 | DI.CT_ITS ---
Exam(s) CT ABDOMEN WO/W EXAM: CT ABDOMEN WO/W CLINICAL HISTORY: DISORDER OF KIDNEY AND URETER N28.89 RENAL MASS TECHNIQUE: Imaging Protocol: Axial computed tomography images with coronal and sagittal reformatted images were created and reviewed CONTRAST MATERIAL: Intravenous: Omnipaque 350 contrast volume:100 mL Oral: No COMPARISON: CT CT thorax abd/pel CTA from 12/25/2018 FINDINGS: ABDOMEN: Lung Bases: Normal where visualized. Liver: Normal density. No measurable mass. Portal, Superior Mesenteric, and Splenic Veins: Unremarkable. Gallbladder and Biliary Tract: Status post cholecystectomy. No significant biliary ductal dilatation is present. Pancreas: Normal density, no abnormal calcifications or inflammatory process. Spleen: Normal. Adrenals: No masses seen. Kidneys: Normal size, contour and axis. There is a single calcification in the right kidney which may represent a nonobstructing stone. There is a new hypodense lesion in the right renal pelvis measuri ng 1.8 x 1.8 cm (series 26, image 84). Abdominal Aorta: Abdominal portion non-dilated. Atherosclerotic calcification is present. Bowel: The stomach is not distended limiting evaluation. Note is made of a duodenal diverticulum adj acent to the head of the pancreas. There is no evidence of bowel wall thickening or bowel obstructio n. There is no evidence of pneumatosis. Peritoneal Cavity: No ascites, collection or mesenteric inflammatory response. No free air. Lymph Nodes: Within normal limits. Bones: Age-appropriate degenerative changes are present. Soft Tissues: Unremarkable. IMPRESSION: 1. 1.8 x 1.8 cm mass in the right renal pelvis which is hypodense relative to the renal cortex. It e xerts mass effect on the surrounding collecting system. (Series 26, image 84). A neoplastic process should be considered. Abscess cannot be entirely excluded. MRI of the kidneys is recommended for f urther characterization. 2. No evidence of abdominal metastatic disease. RADIATION DOSE DELIVERED: 1,169.44mGy.cm Total DLP DATA REPOSITORY: All CT scans at this facility are submitted to the National Radiology Data Registry (NRDR) Dose Index Registry (DIR) with the [employer] (ACR). RADIATION OPTIMIZATION: All CT scans at this facility use at least one of these dose optimization te chniques: automated exposure control; mA and/or kV adjustment per patient size (includes targeted exa ms where dose is matched to clinical indication); or iterative reconstruction.
[2024-09-06] MEDS: Normal Saline - Diluent 50 ML VIAL IJ (16:12)
[2024-09-06] MEDS: Omnipaque 350 MG/ML 100 ML BTL IJ (16:12)
[2024-09-06 16:25] LABS: Calculated LDL 122 mg/dL (<100); Cholesterol 193 mg/dL (<200); HDL Cholesterol 37 mg/dL (>or=50); Triglyceride 170 mg/dL (<150)
== END 2024-09-06 00:37 ==
LOC: DI 00:17
PROVIDERS: Physical Therapy Assistant; PCP Nurse Practitioner Family; Visit Provider Nurse Practitioner Family
DX: R73.03 Prediabetes (principal); E78.5 Hyperlipidemia, unspecified; E03.9 Hypothyroidism, unspecified; M51.360 Other intervertebral disc degeneration, lumbar region with discogenic back pain only; N28.89 Other specified disorders of kidney and ureter
CPT/HCPCS: 73562; 80053; 80061; 72110; 74170; 84443; 85025; J3490

== ENCOUNTER 2024-09-10 07:52 | Outpatient (REF) | payer MEDICARE, MEDICAID, SELFPAY ==
--- NOTE | 2024-09-10 07:28 | SKI_PTH ---
PATIENT: Ansley Jaramillo LOC: [facility] U#:[id number] AGE/SX: 64/F ROOM: RE09/10/[address]: Justino Villalba MD : 1960 BED: DIS: 09/10/2024 SPEC #: [id number] RECD: 09/10/24 12:06 STATUS: EDWARDO REAdrien #: [id number] INEZ: 09/10/24 07:[address]: Justino Villalba DEPT: Surgical Specimen RECD BY: Ashlee Álvarez ENTERED: 09/10/24 12:08 SP TYPE: SKI OTHR DR: Alice Thakkar Tissues: 1 - SKIN BIOPSY(SHAVE/PUNCH) Procedures: GROSS AND MICRO LEVEL 3 Comments: [id number]
== END 2024-09-10 07:53 | disposition home or self-care (01) ==
LOC: LBN 07:52
PROVIDERS: PCP Nurse Practitioner Family; Visit Provider Otolaryngology
DX: L98.9 Disorder of the skin and subcutaneous tissue, unspecified (principal); H61.92 Disorder of left external ear, unspecified
CPT/HCPCS: 88304; 88305

== ENCOUNTER 2024-09-12 08:15 | Outpatient (CLI) | payer MEDICARE, MEDICAID, SELFPAY ==
--- NOTE | 2024-09-12 08:15 | RT.EKG_ITS ---
APPROVED REPORT Exam: Resting ECG Reason for Exam: HTN, chest pain Patient Location: O HR:63 bpm ECG Measurements Heart Rate [address] 179 P 20 QRSd 86 QRS 1 QT 431 T 54 QTc 442 Conclusion Sinus rhythm...normal P axis, V-rate 50- 99 Left ventricular hypertrophy...multiple voltage criteria
== END 2024-09-12 08:16 | disposition home or self-care (01) ==
LOC: DI.CARD 08:16
PROVIDERS: PCP Nurse Practitioner Family; Visit Provider Internal Medicine Cardiovascular Disease
DX: R07.9 Chest pain, unspecified (principal); I10 Essential (primary) hypertension
CPT/HCPCS: 93010

== ENCOUNTER 2024-09-20 16:10 | Outpatient (REF) | payer MEDICARE, MEDICAID, SELFPAY ==
[2024-09-26 09:23] LABS: Methylphenidate Negative ng/mL (Cutoff: 10); Ritalinic Acid 291 ng/mL (Cutoff: 50)
== END 2024-09-20 16:11 | disposition home or self-care (01) ==
LOC: NCHCN 16:10
PROVIDERS: PCP Nurse Practitioner Family; Visit Provider Registered Nurse Psychiatric/Mental Health
DX: F90.2 Attention-deficit hyperactivity disorder, combined type (principal); Z79.891 Long term (current) use of opiate analgesic
CPT/HCPCS: 80360

== ENCOUNTER 2024-09-26 00:35 | Outpatient (CLI) | payer MEDICARE, MEDICAID, SELFPAY ==
--- NOTE | 2024-09-26 06:45 | DI.NM_ITS ---
APPROVED REPORT Exam: Pharmacologic Patient Location: Out-Patient Room/Bed: Stress Nurse: Hannah Steele RN Ordering Provider:MIGUELITO CARMEN, Contact Number: BMI: 37.43 Baseline Rhythm: Sinus Bradycardia Indications: Atypical chest pain, Medical History Medical History: Chest pain, chronic pain, chronic hepatitis, asthma, depression, chronic cough, obes ity, tobacco abuse, DMT2, GERD, hypothyroid, ADHD, opiod addiction, hx cocaine abuse Cardiac Medications: Budesonide-formoterol, suboxone, pantopraxole, lisinopril, clonidine, irbesartan , metoprolol succinate, torsemide Allergies: NKA Cardiac Risk Factors: HTN, HLD, Diabetes, asthma, COPD, smoker, obesity Previous Cardiac Procedures: None Pretest Chest Pain Characteristics: None Exercise History: Sedentary Physical Disabilities: Hips Lung Sounds: Clear to auscultation Heart Sounds: Regular Stress Test Details Test: Pharmacologic stress was paired with low level exercise. Reason for pharmacologic stress test: physical limitation. Nuclear Acquisition: Rest Tc-99m/Stress Tc-99m 1 day Rest Isotope: Tc-99m Sestamibi. Dose: 10.0 Date: 09/26/2024 Injection Time: 0910 Stress Isotope: Tc-99m Sestamibi. Dose: 30.0 Date: 09/26/2024 Injection Time: 1120 HR Resting HR Supine: 54 bpm Max Heart Rate (APMHR): 155 bpm Resting HR Standin bpm Target HR (85% APMHR): 132 bpm Max HR Achieved: 88 bpm % of APMHR: 57 Recovery HR: 65 bpm BP Resting BP Supine: 146/92 mmHg Resting BP Standin/80 mmHg Max BP: 192/82 mmHg Recovery BP: 158/82 mmHg ECG Resting ECG: Sinus Bradycardia Ectopy: None Stress ECG: Sinus Rhythm ST Change: Nondiagnostic low heart rate Arrhythmia: Rare PAC Recovery ECG: Sinus Rhythm Recovery ST Change: Nondiagnostic low heart rate Recovery Arrhythmia: None Clinical Stress Symptoms: Mod SOB Angina Score: None Rate Pressure Product: [id number] Stress ECG Conclusion 1. Resting electrocardiogram is normal 2. Patient underwent testing using a combination of low-level exercise and pharmacologic stress with regadenoson 3. Peak heart rate achieved was 57% of maximal predicted for age 4. The electrocardiographic portion of the test was nondiagnostic 5. See MPI report Stress Test Summary STAGE HR BP SpO2 Symptoms NOTES Supine 54 146/92 94% Standing 60 162/80 1 min post Lexiscan injection 74 192/82 98% 3 min post Lexiscan injection 67 178/84 93% Mod SOB 6 min post Lexiscan injection 65 158/82 All symptoms resolved. MPI Conclusion Myocardial perfusion is normal. There is no ischemia or evidence of prior infarction Ejection fraction is 62% with normal wall motion
[2024-09-26] MEDS: Regadenoson 0.4 MG/5 ML SYR IVP (11:00)
== END 2024-09-26 00:55 ==
LOC: DI 00:36
PROVIDERS: PCP Nurse Practitioner Family; Visit Provider Internal Medicine Cardiovascular Disease
DX: R07.9 Chest pain, unspecified (principal)
CPT/HCPCS: 78452; 93016; 93018; 93017; J2785

== ENCOUNTER 2024-10-08 00:41 | Outpatient (CLI) | payer MEDICARE, MEDICAID, SELFPAY ==
--- NOTE | 2024-10-08 | DI.MRI_ITS ---
Exam(s) MR ABDOMEN WO/W EXAM: MR ABDOMEN WO/W CLINICAL HISTORY: RENAL MASS, N28.89, DISORDER OF KIDNEY/URETER TECHNIQUE: Multiplanar multisequence MRI was performed with both pre and post contrast infused seque nces. Contrast injected sequences were performed following IV injection of 20 cc of Dotarem. COMPARISON: US ABDOMEN ULTRASOUND (P) from 10/27/2016 CT CHEST WITH CONTRAST from 12/29/2016 CT RENAL COLIC WO CONTRAST from 05/30/[address] ABDOMEN WO/W from 09/06/2024 FINDINGS: VISUALIZED LUNG BASES: No pleural effusions evident. There is no ascites evident. LIVER: There are no significant focal hepatic lesions nor dilated intrahepatic ducts. BILIARY: Gallbladder is again noted be surgically absent. The CBD is not dilated. PANCREAS: There is no evidence of pancreatic mass nor dilatation of the pancreatic duct. SPLEEN: Spleen is not enlarged and there are no intrasplenic lesions.Splenic and portal veins are pat ent ADRENALS: There are no significant adrenal masses. KIDNEYS: Left kidney appears unremarkable.In the right kidney at approximately the midpole level ther e is a slightly lobulated well-defined lesion measuring 1.7cm x 1.6cm x 1.3 cm, corresponding to what is described on the recent CT scan. This cystic appearing lesion contains internal enhancing foci/ septae which measure less than 3 mm thickness. No obvious wall enhancement. Bosniak 2 F The right renal vein is patent with no evidence of intraluminal tumor thrombus ABDOMINAL AORTA: Not enlarged and there is no significant para-aortic adenopathy. ANTERIOR ABDOMINAL WALL/GI: There is no evidence of significant anterior abdominal wall hernia in the field of view of this study.Is no evidence of obvious bowel obstruction. OSSEOUS: There are no lytic osseous lesions in the field of view of this study. IMPRESSION: 1. There is a 17 x 16 x 13 mm well-defined lesion at the midpole of the right kidney exhibiting thin enhancing internal septations, this corresponding to finding on recent CT scan. MRI [place] classific ation IIF. Requires repeat imaging in 6 and 12 months. Also recommend urology consultation. 2. Please note that there is also a nonobstructive small calculus in the ipsilateral right kidney see n on recent CT scan of 09/06/2024. Small calculi are not able to be appreciated on MRI. There is no hydronephrosis. 3. The opposite-left kidney appears unremarkable. 4. Gallbladder surgically absent. The biliary tree is not dilated. DATA REPOSITORY:
[2024-10-08] MEDS: Gadoterate meglumine 20 ML VIAL IVP (14:22)
[2024-10-08] MEDS: Normal Saline - Diluent 50 ML VIAL 25 ML IJ (14:22)
--- NOTE | 2024-10-08 20:31 | DI.VRAD_ITS ---
PROCEDURE INFORMATION: Exam: MR Abdomen Without and With Contrast; Kidneys Exam date and time: 10/08/2024 2:01 PM Age: 64 years old Clinical indication: Other: RT kidney mass TECHNIQUE: Imaging protocol: Magnetic resonance imaging of the abdomen without and with contrast. Exam focused on the kidneys. Contrast material: DOTAREM; Contrast volume: 20 ml; Contrast route: INTRAVENOUS (IV); COMPARISON: 1. CT ABDOMEN WO/W 09/06/2024 3:[address] ABDOMEN PELVIS W CONTRAST 09/07/2021 4:49 PM FINDINGS: Gallbladder and biliary ducts: Gallbladder surgically absent. Kidneys and ureters: Complex cystic lesion midpole right kidney 20 x 16 x 15 mm, unchanged compared to most recent CT and larger than 2021. No hydronephrosis. Intraperitoneal space: No free fluid. Lymph nodes: No enlarged nodes. Bones/joints: Thoracolumbar scoliosis. Soft tissues: Unremarkable. IMPRESSION: Complex cystic lesion midpole right kidney 20 x 16 x 15 mm, unchanged compared to most recent CT and larger than 2021. Dictated and Authenticated by: Emmanuel Jackson MD. Orderin Bijan Jenkins MD
== END 2024-10-08 01:01 ==
PROVIDERS: PCP Nurse Practitioner Family; Visit Provider Nurse Practitioner Family
DX: N28.89 Other specified disorders of kidney and ureter (principal)
CPT/HCPCS: 74183

== ENCOUNTER 2024-11-29 00:28 | Outpatient (CLI) | payer MEDICARE, MEDICAID, SELFPAY ==
--- NOTE | 2024-11-29 | DI.RAD_ITS ---
Exam(s) XR HIP PELVIS ADULT BL EXAM: XR HIP PELVIS ADULT BL CLINICAL HISTORY: RT HIP PAIN,M25.551. TECHNIQUE: 2D digital imaging was performed. Three views. COMPARISON: No exams were available for comparison FINDINGS: BONES: No acute fracture is present. No bony destructive lesion is seen. Degenerative changes and s coliosis are noted in the lower lumbar spine. JOINTS: No dislocation present. The hip joint spaces are maintained. Is there is mild bilateral acet abular spurring superiorly. SI joints and pubic symphysis are unremarkable. SOFT TISSUE: Normal. IMPRESSION: Mild degenerative changes of both hips. DATA REPOSITORY: RADIATION DOSE DELIVERED:
== END 2024-11-29 00:48 ==
LOC: DI 00:28
PROVIDERS: PCP Nurse Practitioner Family; Visit Provider Nurse Practitioner Family
DX: M16.0 Bilateral primary osteoarthritis of hip (principal)
CPT/HCPCS: 73521

== ENCOUNTER 2025-03-18 11:46 | Outpatient (CLI) | payer MEDICARE, MEDICAID, SELFPAY ==
[2025-03-18 09:43] LABS: D-Dimer 1174 ng/mlFEU (<500)
== END 2025-03-18 11:47 | disposition home or self-care (01) ==
LOC: LBO 11:47
PROVIDERS: PCP Nurse Practitioner Family; Visit Provider Nurse Practitioner Family
DX: R06.02 Shortness of breath (principal)
CPT/HCPCS: 36415; 85379

== ENCOUNTER 2025-03-20 02:57 | Outpatient (CLI) | payer MEDICARE, MEDICAID, SELFPAY ==
--- NOTE | 2025-03-20 | DI.CT_ITS ---
Exam(s) CT CHEST PE CTA EXAM: CT CHEST PE CTA CLINICAL HISTORY: ELEVATED D DIMER,R79.89. TECHNIQUE: Imaging Protocol: CT angiography of the chest was performed using pulmonary embolus protocol. Multi planar reconstructions were performed. CONTRAST MATERIAL: Intravenous: Omnipaque 350 Contrast volume: 100 cc COMPARISON: CT CT CHEST LUNG CANCER SCREEN from 08/02/2024 FINDINGS: CHEST: PULMONARY ARTERIES: There are no intraluminal filling defects to suggest acute pulmonary emboli. LUNGS: There are no infiltrates nor evidence of pulmonary infarction.. There are no pleural effusions. MEDIASTINUM: There is no hilar nor mediastinal adenopathy. There is a peripherally calcified nodule in the right thyroid lobe measuring 1.5 x 1.4 cm. CARDIAC: Heart size is upper normal. There is no pericardial effusion.Diameter of the ascending thoracic aorta is enlarged, measuring 4.2 cm. There was no reflux of intravenous contrast into the intrahepatic IVC. There is no significant shift of the interventricular septum. PARTIALLY VISUALIZED UPPERMOST ABDOMEN: Gallbladder surgically absent. No adrenal masses. Liver appears possibly cirrhotic. OSSEOUS: No fractures. Benign intraosseous hemangioma is noted in the T9 vertebral body.. IMPRESSION: 1. No evidence of acute pulmonary emboli. No evidence of pulmonary infarction.No pleural effusions. 2. Ascending thoracic aorta is enlarged with 4.2 cm diameter. Cannot assess for dissection as all the contrast is in the pulmonary arterial tree.. 3. Incidental note of partially calcified right thyroid lobe nodule which can be further studied with nonemergent ultrasound RADIATION DOSE DELIVERED: 156.94mGy.cm Total DLP DATA REPOSITORY: All CT scans at this facility are submitted to the National Radiology Data Registry (NRDR) Dose Index Registry (DIR) with the [employer] ([employer]). RADIATION OPTIMIZATION: All CT scans at this facility use at least one of these dose optimization techniques: automated exposure control; mA and/or kV adjustment per patient size (includes targeted exams where dose is matched to clinical indication); or iterative reconstruction.
[2025-03-20 13:40] LABS: Estimated GFR 95.32 (mL/min/1.73m2)
== END 2025-03-20 03:17 ==
PROVIDERS: PCP Nurse Practitioner Family; Visit Provider Nurse Practitioner Family
DX: R79.89 Other specified abnormal findings of blood chemistry (principal)
CPT/HCPCS: 71275; 82565

== ENCOUNTER 2025-04-11 04:24 | Outpatient (CLI) | payer MEDICARE, MEDICAID, SELFPAY ==
--- NOTE | 2025-04-11 | DI.MRI_ITS ---
Exam(s) MR ABDOMEN WO/W EXAM: MR ABDOMEN WO/W CLINICAL HISTORY: RENAL CYST N28.1 [id number] BOSNIAK 2F RT KIDNEY TECHNIQUE: Multiplanar multisequence MRI was performed with both pre and post contrast infused sequences. Contrast injected sequences were performed following IV injection of 20 cc of Dotarem. COMPARISON: CT RENAL COLIC WO CONTRAST from 05/30/[address] thorax abd/pel CTA from 12/25/[address] CHEST W from 05/25/[address] ABDOMEN PELVIS W CONTRAST from 09/07/[address] ABDOMEN WO/W from 09/06/2024 MR MR ABDOMEN WO/W from 10/08/2024 FINDINGS: VISUALIZED LUNG BASES: No pleural effusions evident. There is no ascites evident. LIVER: There are no significant focal hepatic lesions. No dilated intrahepatic ducts. BILIARY: The gallbladder is again noted be surgically absent. The CBD is not dilated. PANCREAS: There is no evidence of pancreatic mass nor dilatation of the pancreatic duct. SPLEEN: Spleen is not enlarged and there are no intrasplenic lesions.Splenic and portal veins are patent ADRENALS: There are no significant adrenal masses. KIDNEYS: Left kidney again appears unremarkable.Previously described midpole level lesion in the right kidney presently measures 1.7 x 1.7 by 1.4 cm, unchanged from the MRI scan of 10/08/2024 and unchanged in size from CT scan of 08/17/2024. However, it was not evident on CT scan of 12/25/2018. On the precontrast T2 weighted images this lesion again exhibits a low signal intensity rim. This rim appears to exhibit some uniform enhancement following contrast injection. There are a few mildly thickened internal septae evident which exhibit enhancement. The thickest septum measures approximately 2.5 mm. The right renal vein is patent. There is no retroperitoneal adenopathy. No other renal lesions. No hydronephrosis. ABDOMINAL AORTA: Not enlarged and there is no significant para-aortic adenopathy. ANTERIOR ABDOMINAL WALL/GI: There is no evidence of significant anterior abdominal wall hernia in the field of view of this study.Is no evidence of obvious bowel obstruction. OSSEOUS: There are no lytic osseous lesions in the field of view of this study. Degenerative scoliosis again noted in the lumbar spine convex left. 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 This is also evident on prior CT scan of 2019. IMPRESSION: 1. Complex cystic right renal midpole level mass measuring 17 x 17 x 14 mm, unchanged in size from CT scan of 08/17/2024 and 10/08/2024 with characteristics as above. 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 Consider ultrasound follow-up for baseline with repeat ultrasound in 6 months to evaluate for change or repeat MRI in 6 months. 2. Opposite-left kidney is unremarkable. DATA REPOSITORY:
[2025-04-11] MEDS: Normal Saline - Diluent 50 ML VIAL IJ (10:04)
[2025-04-11] MEDS: Gadoterate meglumine 20 ML VIAL IVP (10:04)
--- NOTE | 2025-04-11 18:41 | DI.VRAD_ITS ---
PROCEDURE INFORMATION: Exam: MR Abdomen Without and With Contrast Exam date and time: 04/11/2025 9:50 AM Age: 65 years old Clinical indication: Other: RT kidney lesion bosniak classification vs neoplasm TECHNIQUE: Imaging protocol: Magnetic resonance imaging of the abdomen without and with contrast. Contrast material: DOTAREM; Contrast volume: 20 ml; Contrast route: INTRAVENOUS (IV); COMPARISON: MR ABDOMEN WO/W 10/08/2024 2:01 PM FINDINGS: Liver: Liver is unremarkable in size, contour, and signal characteristics. Gallbladder and biliary ducts: Previous cholecystectomy. No biliary dilatation. Pancreas: Pancreas is unremarkable in appearance. Spleen: Spleen is unremarkable. Adrenal glands: Adrenal glands are normal in size, contour, and signal characteristics. Kidneys: Left kidney is normal in appearance. Normal size, contour, and signal characteristics. No obstructive uropathy or suspicious focal lesions. Right kidney is normal in size and contour. There is a solitary lesion of the posterior right mid kidney level. This is a parenchymal lesion measuring 18 x 16 mm AP and transversely. Cephalo caudal extent of 15 mm. This is partially T2 hyperintense with some intrinsic low signal T2 foci. This shows decreased signal on T1. This appears to represent a complex cystic lesion. There is no intrinsic calcium identified by current MRI or prior CT 09/06/2024. On postcontrast images, there are some thin internal septations with minor enhancement. No distinct masslike or nodular features. The septations are few in number suggesting a proximally 3 septa without nodularity or thickening. Right renal vein is unremarkable. This right renal lesion is classified as a Bosniak 2 cyst with internal septations. Stomach and bowel: Gastric, small bowel, and large bowel structures seen within the abdomen are unremarkable. Intraperitoneal space: No free fluid. Vasculature: Abdominal aorta and inferior vena cava without acute change. Lymph nodes: No retroperitoneal lymphadenopathy. Bones/joints: Degenerative lumbar spine and levoscoliosis. Soft tissues: Unremarkable. IMPRESSION: 1. Right renal complex cyst measuring 18 x 16 x 15 mm with some internal septations. These appear to be approximately 3 septations in number and less than 3 mm in thickness. No significant enhancement characteristics or nodular features. This appears to represent a Bosniak 2 cyst. Consider ultrasound follow-up for baseline with repeat ultrasound in 6 months to evaluate for any change. 2. Left kidney is unremarkable. 3. No retroperitoneal lymphadenopathy. Dictated and Authenticated by: Clinton Kam MD. Orderin Oxana Duffy MD
== END 2025-04-11 04:44 ==
LOC: DI 04:25
PROVIDERS: PCP Nurse Practitioner Family; Visit Provider Nurse Practitioner
DX: N28.1 Cyst of kidney, acquired (principal)
CPT/HCPCS: 74183

== ENCOUNTER 2025-04-17 04:31 | Outpatient (CLI) | payer MEDICARE, MEDICAID, SELFPAY ==
--- NOTE | 2025-04-17 13:35 | DI.US_ITS ---
APPROVED REPORT EXAM: Comprehensive 2D, Doppler, and color-flow Echocardiogram Patient Location: Out-Patient Dentistry Teacher: Lauren Roman RDCS (AE) Indications: Thoracic ascending aortic ectasis, Ascending aorta dilation Other Information Study Quality: Adequate. Technically limited study due to body habitus smoker, low imaging window. Conclusion Mild concentric left ventricular hypertrophy. Ejection fraction is 58%. Wall motion is normal Normal right ventricular size and function Mildly enlarged left atrium. Normal right atrial size Trileaflet aortic valve with mild regurgitation Mitral annular calcification. Mild to moderate mitral regurgitation Mild tricuspid regurgitation. Estimated right ventricular systolic pressure is 39 mmHg Ascending aorta measures 4.04 cm Wall motion Left Ventricle The left ventricle is normal size. The left ventricular systolic function is normal. The left ventricular ejection fraction is within the normal range. Mild concentric left ventricular hypertrophy. There is normal LV segmental wall motion. There is no ventricular septal defect visualized. LVEF is 58%. Right Ventricle The right ventricle is normal size. The right ventricular systolic function is normal. Atria Left atrium is mildly dilated. The right atrium size is normal. The interatrial septum is intact with no evidence for an atrial septal defect. Aortic Valve The aortic valve is normal in structure. Aortic valve is trileaflet. There is no aortic valvular stenosis. Mild aortic regurgitation. Mitral Valve Mild mitral annular calcification. No evidence of mitral valve stenosis. Mild to moderate mitral regurgitation. Tricuspid Valve The tricuspid valve is normal in structure. There is no tricuspid valve stenosis. Mild tricuspid regurgitation. The RVSP is 39.4 mmHg. Pulmonic Valve The pulmonary valve is normal in structure. There is no pulmonic valvular stenosis. Trace pulmonic regurgitation. Great Vessels The aortic root is normal in size. The ascending aorta is moderately dilated. Aortic arch is normal in caliber. IVC is normal in size and collapses >50% with inspiration. Pericardium There is no pericardial effusion. 2D Dimensions IVSD d PLAX 1.20 cm F: 0.6-1.0 Ao Root d 3.11 cm F: 2.7 - 3.3 LVPW d PLAX 1.20 cm F: 0.6 - 1.0 Ao Asc Diam d 4.04 cm F: 2.3 - 3.1 LVID d PLAX 4.52 cm F: 3.8 - 5.2 LVDs 3.10 cm F: 2.2 - 3.5 LV EF Teichholz 59.4 % FS 31.40 % LV EDV (Teich) 93.6 mL LV ESV (Teich) 38.0 mL Auto EF LV EDV A4C 131.9 mL LV EDV A2C 128.0 mL LV EDV BP 132.1 mL LV ESV A4C 56.7 mL LV ESV A2C 53.6 mL LV ESV BP 55.9 mL LVEF(%) A4C 57.0 % LVEF(%) A2C 58.1 % LVEF(%) BP 57.7 % LV SV A4C 75.1 ml LV SV A2C 74.4 ml LV SV BP 76.2 ml LV CO A4C 3.1 L/min LV CO A2C 3.1 L/min LV CO BP 3.1 L/min HR A4C 41.62 BPM HR A2C 41.67 BPM LV EDV Index (BP) LA Volume LA Length A4C 5.2 cm LA Length A2C 5.9 cm LA Area A4C s 21.16 cm2 LA Area A2C s 23.63 cm2 LA Vol A4C A-L 73.32 mL LA Vol A2C A-L 79.73 mL LA Vol Biplane A-L 81.9 mL LA Vol/BSA A4C A-L LA Vol/BSA A2C A-L LA Vol/BSA BP A-L 39.8 mL/m2 LA Vol A4C MOD 68.8 mL LA Vol A2C MOD 74.0 mL LA Vol BP MOD 76.1 mL RA Volume RA Area A4C 15.5 cm2 RA ESV A4C (A-L) 38.7mL RA Vol/BSA A4C A-L RA Length A4C 5.3 cm RA ESV A4C (MOD) 37.2mL LV Diastology MV E' medial 0.067 (>0.07 m/s) MV E Vmax 1.14 (0.4-1.3 m/s) MV E/E' MED 17.06 (<14) MV A Vmax 0.90 (0.4-1.3 m/s) MV E' lateral 0.077 (>0.1 m/s) E/A Ratio 1.3 MV E/E' LAT 14.87 (<14) MV E' Average 0.072 m/s MV E/E'(average) 15.89 Aortic Valve AoV Vmax 1.99 m/s LVOT Vmax 1.49 m/s AoV Peak Grad 59.8 mmHg LVOT Peak Grad 8.9 mmHg AoV Area (Vmax) 2.45 cm2 LVOT VTI 0.399 m AoV VTI 0.587 m LVOT Mean Grad 5.5 mmHg AoV Mean Ross. 1.33 m/s LVOT SV 130.48 mL AoV Mean Grad 8.1 mmHg LVOT Diam s 2.00 cm AoV Area (VTI) 2.22 cm2 AV Regurg Peak Gr. 15.86 mmHg Velocity Ratio 0.75 AR Decel Emanuel 2.3m/sec2 AR DT 2180 msec AR PHT 632 msec AR Vmax 5.09 m/s Mitral Valve MV DT 294 (160-240 msec) MV Vmax TIPS 1.32 m/s MV Mean Grad 2.0 (<2mmHg) MV VTI 0.492 m Pulmonary Valve PV Vmax 1.17 (0.5-1.5 m/s) RVOT Vmax 0.93 m/s PV Peak Grad 5.5 mmHg RVOT Peak Gr. 3.5 mmHg PV Mean Ross 0.84 m/s RVOT VTI 0.239 m PV Mean Grad 3.2 mmHg RVOT Mean Gr. 2.1 mmHg Tricuspid Valve RA Pressure 3.00 mmHg TR Vmax 3.01 m/s TV S' 0.14 m/s TR Peak Grad 36.3 mmHg RVSP (TR) 39.4 mmHg
--- NOTE | 2025-04-17 14:15 | DI.US_ITS ---
Exam(s) US THYROID EXAM: US THYROID CLINICAL HISTORY: SINGLE THYROID NODULE E04.1. TECHNIQUE: Ultrasound thyroid performed using standard protocol. COMPARISON: CT CT CHEST PE CTA from 03/20/2025 FINDINGS: There is a solitary peripherally calcified solid nodule in the right thyroid lobe which corresponds to finding incidentally seen on recent chest CT scan. There is a single 0.9 cm benign cyst in the left thyroid lobe. Details of the exam are as follows: RIGHT THYROID LOBE: Measures 1.3 cm AP x 1.5 cm wide x 4.1 cm craniocaudal The solid peripherally calcified nodule measures 1.5 x 1.4 x 1.5 cm With respect to TiRads grading of this nodule: Composition: Solid-2 points Echogenicity: Internal aspect of the nodule is relatively isoechoic to the gland-1 point Shape: Wider than taller in the transverse plane-0 points Margin: Smooth- 0 points Echogenic Foci: This nodule exhibits circumferential peripheral calcification-2 points Total Points for this nodule: 5 ACR Ti-Rads Category: TR4 This TR 4 level nodule is moderately suspicious and should undergo ultrasound- guided FNA as it measures 1.5 cm. ISTHMUS: Normal thickness. No nodules. LEFT THYROID LOBE: Measures 1.1 cm AP x 0.9 wide x 2.8 cm craniocaudal Contains a solitary anechoic cyst which measures 0.9 x 0.7 x 0.8. This benign finding does not qualify for biopsy. LYMPH NODES: There is no significant adenopathy. IMPRESSION: 1. There is a solitary peripherally calcified solid nodule in the right thyroid lobe which corresponds to the finding incidentally noted on recent chest CT scan. This is a TR 4 level nodule (moderately suspicious) which measures 1.5 cm and therefore should undergo ultrasound-guided FNA. 2. There is no significant lymphadenopathy. DATA REPOSITORY:
== END 2025-04-17 04:51 ==
LOC: DI 04:32
PROVIDERS: PCP Nurse Practitioner Family; Visit Provider Nurse Practitioner Family
DX: I77.810 Thoracic aortic ectasia (principal); E04.1 Nontoxic single thyroid nodule; I08.1 Rheumatic disorders of both mitral and tricuspid valves
CPT/HCPCS: 93306; 76536